=== PATIENT | male | born 1945 | race Caucasian/White ===

== ENCOUNTER → 2016-12-03 | Outpatient (CLI) | payer MEDICARE, OTHER ==
[2016-12-03 09:31] LABS: HEMATOCRIT 38.8 % (37.9-51.0); HGB HCT DIFFERENCE -2.8; MEAN CORPUSCULAR HEMOGLOBIN 25.1 pg (27.0-33.4); MEAN CORPUSCULAR HGB CONC 30.9 g/dL (32.0-36.0); MEAN CORPUSCULAR VOLUME 81 fl (80-97); RED BLOOD COUNT 4.78 10^6/uL (4.35-5.55); RED CELL DISTRIBUTION WIDTH 16.1 % (11.5-14.0); WHITE BLOOD COUNT 6.6 10^3/uL (4.0-10.5)
[2016-12-03 09:52] LABS: ANION GAP 17 (5-19); BLOOD UREA NITROGEN 28 mg/dL (7-20); CALCIUM 9.9 mg/dL (8.4-10.2); CARBON DIOXIDE 22 mmol/L (22-30); CHLORIDE 104 mmol/L (98-107); CREATININE RESULT 1.16 mg/dL (0.52-1.25); GLUCOSE 162 mg/dL (75-110); POTASSIUM 4.9 mmol/L (3.6-5.0); SODIUM 142.6 mmol/L (137-145)
[2016-12-03 09:52] LABS: APPEARANCE,URINE CLEAR; BILIRUBIN,URINE NEGATIVE (NEGATIVE); GLUCOSE, URINE NEGATIVE (NEGATIVE); KETONES,URINE NEGATIVE (NEGATIVE); LEUKOCYTE ESTERASE,URINE NEGATIVE (NEGATIVE); NITRITE,URINE NEGATIVE (NEGATIVE); PROTEIN,URINE NEGATIVE (NEGATIVE); URINE SPECIFIC GRAVITY 1.019; UROBILINOGEN,URINE NEGATIVE mg/dL (<2.0)
== END ==
LOC: LAB 09:19
PROVIDERS: ATTEND Internal Medicine Nephrology
DX: I12.9 Hypertensive chronic kidney disease with stage 1 through stage 4 chronic kidney disease, or unspecified chronic kidney disease (principal); N18.2 Chronic kidney disease, stage 2 (mild); R80.9 Proteinuria, unspecified; E11.9 Type 2 diabetes mellitus without complications
CPT/HCPCS: 36415; 80048; 81001; 85027

== ENCOUNTER → 2017-06-16 | Outpatient (CLI) | payer MEDICARE, OTHER ==
[2017-06-16 10:44] LABS: ABSOLUTE EOSINOPHILS # (AUTO) 0.2 10^3/uL (0.0-0.6); ABSOLUTE LYMPHOCYTES (AUTO) 2.1 10^3/uL (0.5-4.7); ABSOLUTE MONOCYTES (AUTO) 0.6 10^3/uL (0.1-1.4); BASOPHILS % (AUTO) 0.5 % (0-2); EOSINOPHILS % (AUTO) 2.5 % (0-6); HEMATOCRIT 39.5 % (37.9-51.0); HGB HCT DIFFERENCE -0.5; LYMPHOCYTES % (AUTO) 26.5 % (13-45); MEAN CORPUSCULAR HEMOGLOBIN 26.5 pg (27.0-33.4); MEAN CORPUSCULAR VOLUME 80 fl (80-97); RED BLOOD COUNT 4.91 10^6/uL (4.35-5.55); RED CELL DISTRIBUTION WIDTH 15.1 % (11.5-14.0); SEGMENTED NEUTROPHILS % (AUTO) 62.5 % (42-78)
[2017-06-16 11:11] LABS: ALANINE AMINOTRANSFERASE 31 U/L (21-72); ALBUMIN 4.4 g/dL (3.5-5.0); ALKALINE PHOSPHATASE 72 U/L (38-126); ANION GAP 14 (5-19); ASPARTATE AMINO TRANSFERASE 24 U/L (17-59); BILIRUBIN,DIRECT 0.4 mg/dL (0.0-0.4); BILIRUBIN,TOTAL 0.7 mg/dL (0.2-1.3); BLOOD UREA NITROGEN 21 mg/dL (7-20); CALCIUM 9.6 mg/dL (8.4-10.2); CARBON DIOXIDE 23 mmol/L (22-30); CHLORIDE 104 mmol/L (98-107); CHOLESTEROL 122.78 mg/dL (0-200); CREATININE RESULT 1.17 mg/dL (0.52-1.25); Direct HDL 29 mg/dL (>40); GLUCOSE 154 mg/dL (75-110); TOTAL PROTEIN 8.2 g/dL (6.3-8.2); TRIGLYCERIDES 332 mg/dL (<150)
[2017-06-16 11:22] LABS: DIRECT LDL 42 mg/dL (<100)
[2017-06-16 11:56] LABS: VLDL CHOLESTEROL 66.4 mg/dL (10-31)
== END ==
LOC: LAB 10:24
PROVIDERS: ATTEND Internal Medicine
DX: E11.9 Type 2 diabetes mellitus without complications (principal); I10 Essential (primary) hypertension; E78.5 Hyperlipidemia, unspecified; R35.1 Nocturia; R53.82 Chronic fatigue, unspecified
CPT/HCPCS: 36415; 80053; 80061; 83036; 84153; 84443; 85025

== ENCOUNTER → 2017-10-06 | Outpatient (CLI) | payer MEDICARE, OTHER ==
[2017-10-06 10:17] LABS: ABSOLUTE EOSINOPHILS # (AUTO) 0.1 10^3/uL (0.0-0.6); ABSOLUTE MONOCYTES (AUTO) 0.6 10^3/uL (0.1-1.4); ABSOLUTE NEUT (AUTO) 3.2 10^3/uL (1.7-8.2); BASOPHILS % (AUTO) 0.3 % (0-2); EOSINOPHILS % (AUTO) 2.3 % (0-6); HEMATOCRIT 39.9 % (37.9-51.0); HEMOGLOBIN 12.9 g/dL (13.5-17.0); HGB HCT DIFFERENCE -1.2; LYMPHOCYTES % (AUTO) 32.7 % (13-45); MEAN CORPUSCULAR HEMOGLOBIN 26.4 pg (27.0-33.4); MEAN CORPUSCULAR HGB CONC 32.4 g/dL (32.0-36.0); MEAN CORPUSCULAR VOLUME 81 fl (80-97); MONOCYTES % (AUTO) 10.5 % (3-13); RED CELL DISTRIBUTION WIDTH 16.1 % (11.5-14.0); SEGMENTED NEUTROPHILS % (AUTO) 54.2 % (42-78)
[2017-10-06 10:42] LABS: ALANINE AMINOTRANSFERASE 36 U/L (21-72); ALBUMIN 4.4 g/dL (3.5-5.0); ALKALINE PHOSPHATASE 64 U/L (38-126); ANION GAP 15 (5-19); ASPARTATE AMINO TRANSFERASE 28 U/L (17-59); BILIRUBIN,DIRECT 0.3 mg/dL (0.0-0.4); BILIRUBIN,TOTAL 0.6 mg/dL (0.2-1.3); BLOOD UREA NITROGEN 24 mg/dL (7-20); CARBON DIOXIDE 25 mmol/L (22-30); CHLORIDE 103 mmol/L (98-107); CHOLESTEROL 144.39 mg/dL (0-200); CREATININE RESULT 1.32 mg/dL (0.52-1.25); Direct HDL 34 mg/dL (>40); GLUCOSE 179 mg/dL (75-110); POTASSIUM 5.3 mmol/L (3.6-5.0); SODIUM 143.3 mmol/L (137-145); TOTAL PROTEIN 7.6 g/dL (6.3-8.2); TRIGLYCERIDES 362 mg/dL (<150)
[2017-10-06 10:54] LABS: DIRECT LDL 59 mg/dL (<100)
[2017-10-06 10:55] LABS: VLDL CHOLESTEROL 72.4 mg/dL (10-31)
== END ==
LOC: LAB 09:52
PROVIDERS: ATTEND Internal Medicine
DX: E11.9 Type 2 diabetes mellitus without complications (principal); I10 Essential (primary) hypertension; E78.5 Hyperlipidemia, unspecified
CPT/HCPCS: 36415; 80053; 80061; 83036; 85025

== ENCOUNTER → 2017-10-07 | Outpatient (CLI) | payer MEDICARE, OTHER ==
--- NOTE | 2017-10-08 09:14 | RADIOLOGY REPORT (SQ) ---
EXAM DESCRIPTION: MRI RT UPPER JOINT WITHOUT COMPLETED DATE/TIME: 10/07/2017 2:38 pm REASON FOR STUDY: M25.511 PAIN IN RIGHT SHOULDER M25.511 PAIN IN RIGHT SHOULDER COMPARISON: None. TECHNIQUE: Right shoulder images acquired and stored on PACS. Multiplanar imaging to include fat sen sitive sequences such as T1, water sensitive sequences such as FST2/STIR, cartilage sensitive sequenc es such as FSPD/gradient-echo sequences. LIMITATIONS: None. FINDINGS: BONE MARROW AND CORTEX: No worrisome bone lesions or marrow replacement. No occult fractur es. JOINT OR BURSAL EFFUSION: There is fluid in the subacromial/subdeltoid bursarelated to full-thickness supraspinatus tear GLENO-HUMERAL ARTICULATION: Normal articulation. No subluxation. No cystic change. Mild chondromalac ia at the glenohumeral joint. ACROMION AND AC JOINT: Type 2 with very bulky acromioclavicular joint bony spurring, and narrowing o f the subacromial recess ROTATOR CUFF AND INTERVAL: Full-thickness tear distal supraspinatus tendon. Bone tendinopathy infras pinatus and subscapularis tendons. LABRUM AND BICEPS LABRAL COMPLEX: Intra-articular long head biceps tendon is thin and high signal f rom tendinopathy. Superior labral tear extending throughout the posterior labrum. No paralabral cys ts. REMAINDER OF LABRUM AND IGHL : No gross tear or paralabral cyst formation. Labral evaluation is less than optimal without joint distention. No thickening of IGHL to suggest adhesive capsulitis. PERIARTICULAR AND ADJACENT SOFT TISSUES: No masses or abnormal nodes. OTHER: No other significant finding. IMPRESSION: Full-thickness supraspinatus tendon tear Superior labral tear extending throughout the posterior labrum TECHNICAL DOCUMENTATION: JOB ID: [id number] [employer]- All Rights Reserved
== END ==
LOC: RAD 13:17
PROVIDERS: ATTEND Internal Medicine
DX: M25.511 Pain in right shoulder (principal)

== ENCOUNTER → 2018-02-17 | Outpatient (CLI) | payer MEDICARE, OTHER ==
--- NOTE | 2018-02-17 11:45 | RADIOLOGY REPORT (SQ) ---
EXAM DESCRIPTION: CHEST PA/LATERAL COMPLETED DATE/TIME: 02/17/2018 11:07 am REASON FOR STUDY: ACUTE BRONCHITIS, UNSPECIFIED,WHEEZING COMPARISON: 06/18/2014, 06/14/2014 EXAM PARAMETERS: NUMBER OF VIEWS: two views TECHNIQUE: Digital Frontal and Lateral radiographic views of the chest acquired. RADIATION DOSE: NA LIMITATIONS: none FINDINGS: LUNGS AND PLEURA: No opacities, masses or pneumothorax. No pleural effusion. MEDIASTINUM AND HILAR STRUCTURES: No masses or contour abnormalities. HEART AND VASCULAR STRUCTURES: Mild cardiomegaly. BONES: No acute findings. HARDWARE: None in the chest. OTHER: No other significant finding. IMPRESSION: Mild cardiomegaly. No acute infiltrates. TECHNICAL DOCUMENTATION: JOB ID: [id number] [employer]- All Rights Reserved Reading location - IP/workstation name: [email or web address]
== END ==
LOC: OD 10:42
PROVIDERS: ATTEND Family Medicine Geriatric Medicine
DX: J20.9 Acute bronchitis, unspecified (principal); R06.2 Wheezing
CPT/HCPCS: 71046

== ENCOUNTER → 2018-02-22 | Outpatient (CLI) | payer MEDICARE, OTHER ==
--- NOTE | 2018-02-23 10:07 | XCELERA REPORT ---
[address] [address] Transthoracic Echocardiogram Report Name: ALLAN NI Age: 72 yrs Gender: Male : 1945 Patient Status: Outpatient Patient Location: Study Date: 02/22/2018 09:22 AM Height: 68 in Weight: 223 lb BSA: 2.1 m2 Procedure: A complete two-dimensional transthoracic echocardiogram was performed (2D, M-mode, spectral and color flow Doppler). The study was technically adequate with some images being suboptimal in quality. Reason For Study: CARDIOMEGALY Ordering Physician: JUAN BARAJAS Performed By: Joshua Murillo Interpretation Summary The left ventricular ejection fraction is normal. There is borderline concentric left ventricular hypertrophy. The left ventricle is grossly normal size. Doppler measurements suggest pseudonormalized left ventricular relaxation, which is associated with grade II/IV or mild to moderate diastolic dysfunction Wall motion cannot be accurately commented on, but no definite regional wall motion abnormalities noted. The right ventricular systolic function is normal. The left atrial size is normal. The right atrium is normal in size There is a mild amount of mitral regurgitation There is no mitral valve stenosis. There is no aortic valve stenosis No aortic regurgitation is present. There is a trace or physiologic amount of tricuspid regurgitation Tricuspid regurgitation jet envelope not well defined to measure RV systolic pressure accurately. The aortic root is not well visualized but is probably normal size. The inferior vena cava was not well visualized There is no pericardial effusion. MMode/2D Measurements & Calculations RVDd: 2.7 cm LVIDd: 6.0 cm FS: 33.1 % Ao root diam: 2.9 cm IVSd: 0.77 cm LVIDs: 4.0 cm EDV(Teich): 181.4 ml LVPWd: 0.83 cm ESV(Teich): 71.2 ml Ao root area: 6.7 cm2 EF(Teich): 60.8 % LA dimension: 3.4 cm Doppler Measurements & Calculations MV E max yin: MV P1/2t max yin: Ao V2 max: LV V1 max P.3 cm/sec 93.3 cm/sec 141.6 cm/sec 4.7 mmHg MV A max yin: MV P1/2t: 62.9 msec Ao max PG: LV V1 max: 83.4 cm/sec 8.0 mmHg 108.6 cm/sec MV E/A: 1.1 MVA(P1/2t): 3.5 cm2 LV dP/dt: MV dec slope: 1023 mmHg/s 434.6 cm/sec2 PA V2 max: TR max yin: 115.5 cm/sec 217.2 cm/sec PA max PG: TR max P.9 mmHg 5.3 mmHg Left Ventricle The left ventricle is grossly normal size. There is borderline concentric left ventricular hypertrophy. The left ventricular ejection fraction is normal. Doppler measurements suggest pseudonormalized left ventricular relaxation, which is associated with grade II/IV or mild to moderate diastolic dysfunction. Wall motion cannot be accurately commented on, but no definite regional wall motion abnormalities noted. Right Ventricle The right ventricle is grossly normal size. There is normal right ventricular wall thickness. The right ventricular systolic function is normal. Atria The right atrium is normal in size. The left atrial size is normal. Interarterial septum not well visualized and not well dopplered. Cannot comment on ASD/PFO presence. Mitral Valve The mitral valve is grossly normal. There is no mitral valve stenosis. There is a mild amount of mitral regurgitation. Aortic Valve The aortic valve is not well visualized secondary to technical limitations. There is no aortic valve stenosis. No aortic regurgitation is present. Tricuspid Valve The tricuspid valve is not well visualized secondary to technical limitations. There is no tricuspid stenosis. There is a trace or physiologic amount of tricuspid regurgitation. Tricuspid regurgitation jet envelope not well defined to measure RV systolic pressure accurately. Pulmonic Valve The pulmonic valve is not well visualized. Great Vessels The aortic root is not well visualized but is probably normal size. The inferior vena cava was not well visualized. Effusions There is no pericardial effusion. : JUAN BARAJAS > Raman Sneed
== END ==
LOC: SP 09:04
PROVIDERS: ATTEND Family Medicine Geriatric Medicine
DX: I51.7 Cardiomegaly (principal)
CPT/HCPCS: 93306

== ENCOUNTER 2018-05-24 15:07 | Emergency (ER) | payer MEDICARE, OTHER ==
[2018-05-24] MEDS ORDERED: NAPROXEN 250 MG TABLET PO ONE (15:44)
[2018-05-24] MEDS ORDERED: DIAZEPAM 5 MG TABLET PO ONE (15:44)
--- NOTE | 2018-05-24 15:47 | ER Document Report ---
ED Medical Screen (RME) - General Chief Complaint: Headache Stated Complaint: HEADACHE Time Seen by Provider: 05/24/18 15:35 Notes: RAPID MEDICAL EVALUATION DISCLOSURE I have seen this patient as part of a Rapid Medical Evaluation and, if applicable, placed any initially appropriate orders. The patient will be seen and fully evaluated, including a full history and physical exam, by a provider ( in Main ED or Fast Track) when a room becomes available. 72M here w c/o neck pain past few days but worse today and much more severe. He has also had a POON in the back of the head but does not have one at this time. he has tried motrin for the sx without much relief. He initially told the [facility] RN that it felt like his meningitis previously but denies this to me. He has also been having whole body cramps "every single night". He was recently tx for bronchitis and was doing a lot of coughing and wonders if this may have caused him to have the neck pain/POON. EXAM exquisite bilateral cervical paraspinal mm TTP strength 5/5 w intact sensation all extremities TRAVEL OUTSIDE OF THE [place] IN LAST 30 DAYS: No - Related Data Allergies/Adverse Reactions: No Known Allergies Allergy (Verified 06/14/14 18:26) Physical Exam - Vital signs Vitals: Temp Pulse Resp BP Pulse Ox 97.7 F 94 18 149/81 H 95 05/24/18 15:15 05/24/18 15:15 05/24/18 15:15 05/24/18 15:15 05/24/18 15:15 Course - Vital Signs Vital signs: Temp Pulse Resp BP Pulse Ox 97.7 F 94 18 149/81 H 95 05/24/18 15:15 05/24/18 15:15 05/24/18 15:15 05/24/18 15:15 05/24/18 15:15 Doctor's Discharge - Discharge Referrals: JUAN BARAJAS MD [Primary Care Provider] - Follow up as needed
[2018-05-24 16:41] LABS: ABSOLUTE LYMPHOCYTES (AUTO) 1.6 10^3/uL (0.5-4.7); BASOPHILS % (AUTO) 0.4 % (0-2); EOSINOPHILS % (AUTO) 0.4 % (0-6); HEMATOCRIT 37.1 % (37.9-51.0); HEMOGLOBIN 12.1 g/dL (13.5-17.0); LYMPHOCYTES % (AUTO) 14.8 % (13-45); MEAN CORPUSCULAR HEMOGLOBIN 26.5 pg (27.0-33.4); MEAN CORPUSCULAR HGB CONC 32.6 g/dL (32.0-36.0); MEAN CORPUSCULAR VOLUME 81 fl (80-97); PLATELET COUNT 296 10^3/uL (150-450); RED BLOOD COUNT 4.56 10^6/uL (4.35-5.55); RED CELL DISTRIBUTION WIDTH 15.9 % (11.5-14.0); SEGMENTED NEUTROPHILS % (AUTO) 75.4 % (42-78); TOTAL CELLS COUNTED % (AUTO) 100 %; WHITE BLOOD COUNT 10.6 10^3/uL (4.0-10.5)
[2018-05-24 16:55] LABS: ANION GAP 16 (5-19); BLOOD UREA NITROGEN 25 mg/dL (7-20); CALCIUM 9.5 mg/dL (8.4-10.2); CARBON DIOXIDE 27 mmol/L (22-30); CHLORIDE 102 mmol/L (98-107); GLUCOSE 186 mg/dL (75-110); POTASSIUM 5.3 mmol/L (3.6-5.0); SODIUM 144.7 mmol/L (137-145)
[2018-05-24] MEDS ORDERED: OXYCODONE HCL IR 5 MG TABLET PO ONE (17:19)
[2018-05-24] MEDS ORDERED: DIPHENHYDRAMINE HCL 25 MG CAPSULE PO ONE (18:00)
[2018-05-24] MEDS ORDERED: METOCLOPRAMIDE HCL ORAL SOLN 10 MG/10 ML UDCUP PO ONE (18:00)
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
[2018-05-24 19:59] VITALS: BP 139/76
== END 2018-05-24 19:35 | disposition home or self-care (01) ==
LOC: ER 15:07
DX: S16.1XXA Strain of muscle, fascia and tendon at neck level, initial encounter (principal); X58.XXXA Exposure to other specified factors, initial encounter; R51 Headache; M54.2 Cervicalgia; E11.9 Type 2 diabetes mellitus without complications; Z86.61 Personal history of infections of the central nervous system
CPT/HCPCS: 99284; 36415; 85025; 80048; A9270 ×5

== ENCOUNTER → 2018-05-31 | Outpatient (CLI) | payer MEDICARE, OTHER ==
[2018-05-31 16:21] LABS: ABSOLUTE EOSINOPHILS # (AUTO) 0.1 10^3/uL (0.0-0.6); ABSOLUTE LYMPHOCYTES (AUTO) 1.8 10^3/uL (0.5-4.7); ABSOLUTE MONOCYTES (AUTO) 0.6 10^3/uL (0.1-1.4); ABSOLUTE NEUT (AUTO) 4.7 10^3/uL (1.7-8.2); BASOPHILS % (AUTO) 0.4 % (0-2); EOSINOPHILS % (AUTO) 1.9 % (0-6); HEMATOCRIT 38.6 % (37.9-51.0); HEMOGLOBIN 12.6 g/dL (13.5-17.0); LYMPHOCYTES % (AUTO) 25.1 % (13-45); MEAN CORPUSCULAR HEMOGLOBIN 25.8 pg (27.0-33.4); MEAN CORPUSCULAR HGB CONC 32.6 g/dL (32.0-36.0); MEAN CORPUSCULAR VOLUME 79 fl (80-97); MONOCYTES % (AUTO) 7.9 % (3-13); PLATELET COUNT 315 10^3/uL (150-450); RED BLOOD COUNT 4.87 10^6/uL (4.35-5.55); SEGMENTED NEUTROPHILS % (AUTO) 64.7 % (42-78); TOTAL CELLS COUNTED % (AUTO) 100 %; WHITE BLOOD COUNT 7.3 10^3/uL (4.0-10.5)
[2018-05-31 17:08] LABS: ALANINE AMINOTRANSFERASE 29 U/L (21-72); ALBUMIN 4.1 g/dL (3.5-5.0); ALKALINE PHOSPHATASE 66 U/L (38-126); ANION GAP 14 (5-19); ASPARTATE AMINO TRANSFERASE 40 U/L (17-59); BILIRUBIN,DIRECT 0.3 mg/dL (0.0-0.4); BILIRUBIN,TOTAL 0.6 mg/dL (0.2-1.3); BLOOD UREA NITROGEN 29 mg/dL (7-20); CALCIUM 9.5 mg/dL (8.4-10.2); CARBON DIOXIDE 27 mmol/L (22-30); CHLORIDE 103 mmol/L (98-107); CHOLESTEROL 102.77 mg/dL (0-200); GLUCOSE 157 mg/dL (75-110); POTASSIUM 5.3 mmol/L (3.6-5.0); TOTAL PROTEIN 7.7 g/dL (6.3-8.2); TRIGLYCERIDES 278 mg/dL (<150)
[2018-05-31 17:19] LABS: DIRECT LDL 35 mg/dL (<100)
[2018-05-31 17:38] LABS: VLDL CHOLESTEROL 55.6 mg/dL (10-31)
== END ==
LOC: LAB 16:04
PROVIDERS: ATTEND Internal Medicine
DX: E11.9 Type 2 diabetes mellitus without complications (principal); I10 Essential (primary) hypertension; R35.1 Nocturia; R53.83 Other fatigue; E78.4 Other hyperlipidemia; Z12.5 Encounter for screening for malignant neoplasm of prostate
CPT/HCPCS: 36415; 84443; 85025; 80053; 83036; 80061; G0103

== ENCOUNTER 2018-08-25 18:47 | Observation (INO) | payer MEDICARE, OTHER ==
[2018-08-25] MEDS ORDERED: METOCLOPRAMIDE HCL INJ/PF 10 MG/2 ML SDV IV ONE (19:13)
[2018-08-25] MEDS ORDERED: DIPHENHYDRAMINE HCL 50 MG/ML VIAL IV ONE (19:13)
[2018-08-25] MEDS ORDERED: DIAZEPAM 5 MG TABLET PO ONE (19:14)
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
[2018-08-25 19:44] LABS: INTERNATIONAL RATION (INR) 0.98; PROTHROMBIN TIME 13.5 SEC (11.4-15.4)
--- NOTE | 2018-08-25 20:30 | RADIOLOGY REPORT (SQ) ---
EXAM DESCRIPTION: CT CERVICAL SPINE WITHOUT COMPLETED DATE/TIME: 08/25/2018 8:04 pm REASON FOR STUDY: Headache, neck pain COMPARISON: None. TECHNIQUE: Axial images acquired through the cervical spine without intravenous contrast. Images re viewed with lung, soft tissue and bone windows. Reconstructed coronal and sagittal MPR images review ed. Images stored on PACS. All CT scanners at this facility use dose modulation, iterative reconstruction, and/or weight based d osing when appropriate to reduce radiation dose to as low as reasonably achievable (ALARA). [facility]: Dose Right [facility]: CareDose [facility]: Dose Right [facility]: Teradose 4D [facility]: [employer] RADIATION DOSE: CT Rad equipment meets quality standard of care and radiation dose reduction techniq ues were employed. CTDIvol: 24.2 mGy. DLP: 487 mGy-cm. mGy. LIMITATIONS: None. FINDINGS: ALIGNMENT: Anatomic. MINERALIZATION: Normal. VERTEBRAL BODIES: No fractures or dislocation. DISCS: Disc spaces are narrowed from C3-C7 with small marginal osteophytes. FACETS, LATERAL MASSES, POSTERIOR ELEMENTS: Multilevel facet hypertrophy, right more than left. HARDWARE: None in the spine. VISUALIZED RIBS: No fractures. LUNG APICES AND SOFT TISSUES: No significant or acute findings. OTHER: No other significant finding. IMPRESSION: Degenerative disc disease, facet arthropathy. Mild spondylosis. No acute findings. TECHNICAL DOCUMENTATION: JOB ID: [id number] Quality ID # [id number]: Final reports with documentation of one or more dose reduction techniques (e.g., Au tomated exposure control, adjustment of the mA and/or kV according to patient size, use of iterative reconstruction technique) 2010 [employer]- All Rights Reserved Reading location - IP/workstation name: [email or web address]
--- NOTE | 2018-08-25 20:31 | RADIOLOGY REPORT (SQ) ---
EXAM DESCRIPTION: CT HEAD WITHOUT COMPLETED DATE/TIME: 08/25/2018 8:04 pm REASON FOR STUDY: Headache, neck pain COMPARISON: 06/14/2014 TECHNIQUE: Axial images acquired through the brain without intravenous contrast. Images reviewed wi th bone, brain and subdural windows. Additional sagittal and coronal reconstructions were generated. Images stored on PACS. All CT scanners at this facility use dose modulation, iterative reconstruction, and/or weight based d osing when appropriate to reduce radiation dose to as low as reasonably achievable (ALARA). [facility]: Dose Right [facility]: CareDose [facility]: Dose Right [facility]: Teradose 4D [facility]: Smart [employer] RADIATION DOSE: CT Rad equipment meets quality standard of care and radiation dose reduction techniq ues were employed. CTDIvol: 53.2 mGy. DLP: 964 mGy-cm. mGy. LIMITATIONS: None. FINDINGS: VENTRICLES: Normal size and contour. CEREBRUM: No masses. No hemorrhage. No midline shift. No evidence for acute infarction. Few scatte red areas of low density in the white matter most likely chronic small vessel ischemic changes. CEREBELLUM: No masses. No hemorrhage. No alteration of density. No evidence for acute infarction. EXTRAAXIAL SPACES: No fluid collections. No masses. ORBITS AND GLOBE: No intra- or extraconal masses. Normal contour of globe without masses. CALVARIUM: No fracture. PARANASAL SINUSES: No fluid or mucosal thickening. SOFT TISSUES: No mass or hematoma. OTHER: No other significant finding. IMPRESSION: MILD CHRONIC MICROVASCULAR ISCHEMIA. NO ACUTE IMAGING FINDINGS IN THE BRAIN. EVIDENCE OF ACUTE STROKE: NO. COMMENT: Quality ID # [id number]: Final reports with documentation of one or more dose reduction techniques (e.g., Automated exposure control, adjustment of the mA and/or kV according to patient size, use of iterative reconstruction technique) TECHNICAL DOCUMENTATION: JOB ID: [id number] [employer]- All Rights Reserved Reading location - IP/workstation name: [email or web address]
--- NOTE | 2018-08-25 20:32 | RADIOLOGY REPORT (SQ) ---
EXAM DESCRIPTION: CHEST 2 VIEWS COMPLETED DATE/TIME: 08/25/2018 8:06 pm REASON FOR STUDY: cough COMPARISON: 06/18/2014 EXAM PARAMETERS: NUMBER OF VIEWS: two views TECHNIQUE: Digital Frontal and Lateral radiographic views of the chest acquired. RADIATION DOSE: NA LIMITATIONS: none FINDINGS: LUNGS AND PLEURA: No opacities, masses or pneumothorax. No pleural effusion. MEDIASTINUM AND HILAR STRUCTURES: No masses or contour abnormalities. HEART AND VASCULAR STRUCTURES: Heart normal size. No evidence for failure. BONES: No acute findings. HARDWARE: None in the chest. OTHER: No other significant finding. IMPRESSION: NO ACUTE RADIOGRAPHIC FINDING IN THE CHEST. TECHNICAL DOCUMENTATION: JOB ID: [id number] [employer]- All Rights Reserved Reading location - IP/workstation name: [email or web address]
[2018-08-25 21:05] LABS: ABSOLUTE EOSINOPHILS # (AUTO) 0.1 10^3/uL (0.0-0.6); ABSOLUTE LYMPHOCYTES (AUTO) 1.9 10^3/uL (0.5-4.7); ABSOLUTE MONOCYTES (AUTO) 0.7 10^3/uL (0.1-1.4); ABSOLUTE NEUT (AUTO) 6.5 10^3/uL (1.7-8.2); BASOPHILS % (AUTO) 0.2 % (0-2); EOSINOPHILS % (AUTO) 1.4 % (0-6); HEMATOCRIT 38.6 % (37.9-51.0); HEMOGLOBIN 12.6 g/dL (13.5-17.0); LYMPHOCYTES % (AUTO) 20.1 % (13-45); MEAN CORPUSCULAR HEMOGLOBIN 26.4 pg (27.0-33.4); MEAN CORPUSCULAR HGB CONC 32.6 g/dL (32.0-36.0); MEAN CORPUSCULAR VOLUME 81 fl (80-97); PLATELET COUNT 229 10^3/uL (150-450); RED BLOOD COUNT 4.77 10^6/uL (4.35-5.55); RED CELL DISTRIBUTION WIDTH 16.3 % (11.5-14.0); SEGMENTED NEUTROPHILS % (AUTO) 70.3 % (42-78); TOTAL CELLS COUNTED % (AUTO) 100 %; WHITE BLOOD COUNT 9.2 10^3/uL (4.0-10.5)
[2018-08-25 21:29] LABS: ALANINE AMINOTRANSFERASE 23 U/L (21-72); ALBUMIN 4.1 g/dL (3.5-5.0); ALKALINE PHOSPHATASE 66 U/L (38-126); ANION GAP 10 (5-19); ASPARTATE AMINO TRANSFERASE 26 U/L (17-59); BILIRUBIN,DIRECT 0.3 mg/dL (0.0-0.4); BILIRUBIN,TOTAL 0.8 mg/dL (0.2-1.3); BLOOD UREA NITROGEN 19 mg/dL (7-20); CALCIUM 9.5 mg/dL (8.4-10.2); CARBON DIOXIDE 24 mmol/L (22-30); CHLORIDE 104 mmol/L (98-107); GLUCOSE 167 mg/dL (75-110); SODIUM 137.7 mmol/L (137-145); TOTAL PROTEIN 7.6 g/dL (6.3-8.2)
[2018-08-25 21:31] LABS: POTASSIUM 6.5 mmol/L (3.6-5.0)
[2018-08-25] MEDS ORDERED: INSULIN REG, HUMAN 100 UNIT/ML 3 ML VIAL (PYX) IV ONE (21:43)
[2018-08-25] MEDS ORDERED: CALCIUM GLUCONATE 1000 MG/10 ML INJ IV ONE (21:43)
[2018-08-25] MEDS ORDERED: DEXTROSE 50%-WATER 25 GM/50 ML DISP.SYRIN IV ONE (21:44)
[2018-08-25] MEDS ORDERED: ALBUTEROL SULFATE 0.083% NEB 2.5 MG/3 ML AMPUL NEB ONE (21:44)
[2018-08-25] MEDS ORDERED: FUROSEMIDE INJ/PF 20 MG/2 ML SDV IV ONE (21:44)
[2018-08-25] MEDS ORDERED: HYDROMORPHONE HCL INJ/PF 2 MG/ML AMPULE IV ONE (21:50)
[2018-08-25] MEDS ORDERED: PROMETHAZINE HCL INJ 25 MG/1 ML VIAL IV PRN (23:08)
[2018-08-25] MEDS ORDERED: MAG HYDROX/AL HYDROX/SIMETH SUSP 30 ML UDCUP PO PRN (23:08)
[2018-08-25] MEDS ORDERED: PROMETHAZINE HCL 25 MG TABLET PO PRN (23:08)
[2018-08-25] MEDS ORDERED: DEXTROSE 40% GEL 15 GM TUBE PO PRN ×2 (23:14)
[2018-08-25] MEDS ORDERED: GLUCAGON,HUMAN RECOMB 1 MG INJ IM PRN (23:14)
[2018-08-25] MEDS ORDERED: DEXTROSE 50%-WATER 25 GM/50 ML DISP.SYRIN IV PRN ×2 (23:14)
--- NOTE | 2018-08-26 00:16 | PDOC H&P ---
History of Present Illness Admission Date/PCP: 08/25/18 22:10 DOROTHY TELLEZ MD Patient complains of: Neck pain History of Present Illness: ALLAN NI is a 72 year old male with history of hypertension, hyperlipidemia and viral meningitis in 2013 comes to the emergency department complaining of neck pain and headaches. Patient has been in our emergency department before with similar symptomatology and sent home with pain medications. In the emergency department laboratory was sent and potassium came back up to 6.5. Patient is at home on lisinopril which is not a new medication for him, denies taking any potassium supplements or any over-the- counter vitamins. Patient has very mild CKD stage III. His main complaint and concern is his neck pain and he is unable to move his neck, CT of the neck was done on prior visit to the emergency department and shows chronic changes. Denies fever, chills, nausea, vomiting, chest pain, shortness of breath, cough, abdominal pain, changes in his urine or bowel movements. In the ED was given hyperkalemia cocktail with D50 with 10 units of insulin regular IV, 1 g of IV calcium gluconate, nebulizer treatments with albuterol. EKG with no peak T waves. Past Medical History Cardiac Medical History: Reports: Hyperlipidema, Hypertension Pulmonary Medical History: Reports: Bronchitis Endocrine Medical History: Reports: Diabetes Mellitus Type 2 Renal/ Medical History: Reports: Nephrolithiasis Skin History Note: Agent orange exposure Psychiatric Medical History: Reports: Post Traumatic Stress Disorder Past Surgical History Past Surgical History: Reports: Orthopedic Surgery - Left hand surgery Social History Lives with: Alone Smoking Status: Former Smoker Frequency of Alcohol Use: Occasional Hx Recreational Drug Use: No Hx Prescription Drug Abuse: No Past Social History Note: Patient is independent with his ADLs, 2 daughters at the bedside. Family History Family History: Reviewed & Not Pertinent Parental Family History Reviewed: Yes - Father with history of diabetes mellitus Children Family History Reviewed: NA Sibling(s) Family History Reviewed.: NA Medication/Allergy Home Medications: Amoxicillin Trihydrate [Amoxil 875 mg Tablet] 1 tab PO Q12 06/14/14 Fluticasone Propionate [Flovent Diskus 50 mcg] 2 puff IH DAILY 06/14/14 Glyburide [Diabeta 5 mg Tablet] 5 mg PO QAM 06/14/14 Lisinopril/Hydrochlorothiazide [Lisinopril-Hctz 20-12.5 mg Tab] 1.5 each PO DAILY 06/14/14 Simvastatin 40 mg PO DAILY 06/14/14 Sitagliptin Phos/Metformin HCl [Janumet 50-1,000 Mg Tablet] 1 each PO BID Hydrocodone/Acetaminophen [Halifax 5-325 mg Tablet] 1 tab PO Q6H #12 tablet Allergies/Adverse Reactions: No Known Allergies Allergy (Verified 08/25/18 18:48) Review of Systems Review of Systems: As outlined in the HPI, all others negative Physical Exam Vital Signs: Temp Pulse Resp BP Pulse Ox 97.9 F 79 20 147/79 H 93 08/25/18 18:49 08/25/18 18:49 08/25/18 23:01 08/25/18 23:01 08/25/18 23:01 Additional comments: General appearance: Well-developed, obese, alert and cooperative, and appears to be in no acute distress Head: Normocephalic Eyes: PEERL, EOMI, vision is grossly intact. Ears: External auditory canal and tympanic membranes clear, hearing grossly intact. Nose: No nasal discharge. Throat: Oral cavity and pharynx normal. No inflammation, swelling, exudate or lesions. Neck: Neck stiff, with limited range of motion to right, left side, up or down. Tenderness to palpation in the para spinal cervical area. No lymphadenopathy , erythema or swelling. Cardiac: Normal S1 and S2. No S3, S4 or murmurs. Rhythm is regular. There is no peripheral edema, cyanosis or pallor. Extremities are warm and well perfused. Capillary refill is less than 2 seconds. No carotid bruits. Lungs: Clear to auscultation and percussion without rales, rhonchi, wheezing or diminished breath sounds. Not using accessory muscles. Abdomen: Positive bowel sounds. Soft. Nondistended, nontender. No guarding or rebound. No masses. No hepatosplenomegaly Extremities: No significant deformity or joint abnormality. No edema. Peripheral pulses intact. No varicosities. Neurological: Cranial nerves II through XII grossly intact. Strength and sensation symmetric and intact throughout. Reflexes 2+ throughout. Skin: Skin normal color, texture and turgor with no lesions or eruptions, warm and dry. Psychiatric: The mental examination revealed the patient was oriented to person , place, and time. The patient was able to demonstrate good judgment on recent , without hallucinations, abnormal affect or abnormal behaviors. Results Laboratory Results: 08/25/18 08/25/18 08/25/18 19:24 19:24 20:50 WBC 9.2 RBC 4.77 Hgb 12.6 L Hct 38.6 MCV 81 MCH 26.4 L MCHC 32.6 RDW 16.3 H Plt Count 229 Seg Neutrophils % 70.3 Lymphocytes % 20.1 Monocytes % 8.0 Eosinophils % 1.4 Basophils % 0.2 Absolute Neutrophils 6.5 Absolute Lymphocytes 1.9 Absolute Monocytes 0.7 Absolute Eosinophils 0.1 Absolute Basophils 0.0 PT 13.5 INR 0.98 Sodium Potassium Chloride Carbon Dioxide Anion Gap BUN Creatinine Est GFR ( Amer) Est GFR (Non-Af Amer) Glucose Lactic Acid 1.9 Calcium Total Bilirubin Direct Bilirubin AST ALT Alkaline Phosphatase Total Protein Albumin 08/25/18 20:50 WBC RBC Hgb Hct MCV MCH MCHC RDW Plt Count Seg Neutrophils % Lymphocytes % Monocytes % Eosinophils % Basophils % Absolute Neutrophils Absolute Lymphocytes Absolute Monocytes Absolute Eosinophils Absolute Basophils PT INR Sodium 137.7 Potassium 6.5 H* Chloride 104 Carbon Dioxide 24 Anion Gap 10 BUN 19 Creatinine 1.29 H Est GFR ( Amer) > 60 Est GFR (Non-Af Amer) 54 L Glucose 167 H Lactic Acid Calcium 9.5 Total Bilirubin 0.8 Direct Bilirubin 0.3 AST 26 ALT 23 Alkaline Phosphatase 66 Total Protein 7.6 Albumin 4.1 Impressions: Cervical Spine CT 08/25/18 19:12 IMPRESSION: Degenerative disc disease, facet arthropathy. Mild spondylosis. No acute findings. Head CT 08/25/18 19:12 IMPRESSION: MILD CHRONIC MICROVASCULAR ISCHEMIA. NO ACUTE IMAGING FINDINGS IN THE BRAIN. EVIDENCE OF ACUTE STROKE: NO. Chest X-Ray 08/25/18 19:15 IMPRESSION: NO ACUTE RADIOGRAPHIC FINDING IN THE CHEST. Assessment & Plan - Diagnosis (1) Hyperkalemia Is this a current diagnosis for this admission?: Yes Plan: Laboratory sent in the emergency department shows serum potassium at 6.5, in the ED given 1 g of calcium gluconate, D50 with 10 units of IV insulin regular, IV Lasix and albuterol nebulizer treatments. We will reassess potassium at 1 in the morning and treat accordingly. EKG does not show any peaked T waves. Will place lisinopril on hold. Renal function is at his baseline. Denies taking any potassium supplements at home or [id number] vitamins. (2) HTN (hypertension) Qualifiers: Hypertension type: unspecified Qualified Code(s): I10 - Essential (primary ) hypertension Is this a current diagnosis for this admission?: Yes Plan: Continue with home antihypertensive medications. (3) Neck pain Is this a current diagnosis for this admission?: Yes Plan: This is a chronic problem that apparently is triggered by stress and anxiety, has a CT of the neck done this year which shows chronic changes, in the past this has improved progressively with pain medications and muscle relaxant. Will resume his home cyclobenzaprine, I will place him on Halifax as needed as during his last visit to the ED improve his symptoms and Tylenol as needed. Patient might benefit of neurosurgery evaluation as outpatient. CT of the head done as the patient was complaining of headaches and came back negative for acute, shows mild chronic microvascular ischemia. (4) Diabetes mellitus type 2 in obese Is this a current diagnosis for this admission?: Yes Plan: For now we are going to place hold his metformin. Accu-Cheks q. before meals and at bedtime, insulin lispro sliding scale and hypoglycemia protocol. - Time Time Spent: 30 to 50 Minutes
[2018-08-26 00:42] LABS: APPEARANCE,URINE CLEAR; BILIRUBIN,URINE NEGATIVE (NEGATIVE); COLOR,URINE YELLOW; GLUCOSE, URINE 50 mg/dL (NEGATIVE); KETONES,URINE NEGATIVE (NEGATIVE); LEUKOCYTE ESTERASE,URINE NEGATIVE (NEGATIVE); NITRITE,URINE NEGATIVE (NEGATIVE); PROTEIN,URINE NEGATIVE (NEGATIVE); URINE SPECIFIC GRAVITY 1.012; UROBILINOGEN,URINE NEGATIVE mg/dL (<2.0)
[2018-08-26] MEDS: OXYCODONE-ACETAMINOPHEN 5-325 MG TABLET PO PRN ×4 (00:58→17:20)
[2018-08-26] MEDS ORDERED: SODIUM POLYSTYRENE SULFONATE 15 GM/60 ML PO ONE (02:15)
[2018-08-26] MEDS: ACETAMINOPHEN 325 MG TABLET PO PRN (02:27)
[2018-08-26] MEDS: NORMAL SALINE 1000 ML 1,000 ML IV PRN ×2 (02:27→13:30)
[2018-08-26 05:09] LABS: ANION GAP 16 (5-19); BLOOD UREA NITROGEN 19 mg/dL (7-20); CALCIUM 9.9 mg/dL (8.4-10.2); CARBON DIOXIDE 22 mmol/L (22-30); CHLORIDE 102 mmol/L (98-107); GLUCOSE 196 mg/dL (75-110); POTASSIUM 5.3 mmol/L (3.6-5.0); SODIUM 139.5 mmol/L (137-145)
[2018-08-26] MEDS: MAGNESIUM SULFATE/D5W 1 GM/100 ML RTUPB IV SCH ×4 (06:41→19:14)
--- NOTE | 2018-08-26 07:28 | EKG REPORT ---
SEVERITY:- BORDERLINE ECG - SINUS RHYTHM LEFT AXIS DEVIATION BORDERLINE R WAVE PROGRESSION, ANTERIOR LEADS NONSPECIFIC ST-T CHANGE LATERAL LEADS : Confirmed by: Nima Garcia MD 26-Aug-2018 07:27:31
[2018-08-26] MEDS: INSULIN LISPRO 100 UNIT/ML 3 ML VIAL SUBCUT PRN ×3 (09:08→21:55)
[2018-08-26] MEDS: LIDOCAINE 5% (700 MG) TRANSDERMAL ADH..PATCH TP SCH (09:09)
[2018-08-26] MEDS: ENOXAPARIN SODIUM INJ 40 MG/0.4 ML DISP.SYRIN SUBCUT SCH (09:09)
--- NOTE | 2018-08-26 09:10 | Progress Note ---
Provider Note Provider Note: The patient seen this morning on rounds. He is sitting comfortably in the recliner stating that his pain in the neck is 1 out of 10. 2 daughters present at the bedside. 1 of the daughters before the conversation even started is demanding an MRI of his neck. Explained to the patient and his daughter that his symptoms do not require an emergency MRI. Advised the patient and the daughter that the patient is claustrophobic and will have difficulty completing the MRI and would probably be served better with an open MRI as an outpatient. Discussed the use of medications, physical therapy and a spine surgeon as an outpatient. The daughter disagrees with my recommendations. She is being very rude. I have discussed the case with the hospitalist group who has admitted the patient during the night and explained to them about the disagreement of the family with my recommendations. They have agreed to accept patient to their service. I have returned back to the room and explained to the patient and his daughter that I will no longer be willing to take care of him as a patient and I am discharging him from my services. Just as I am leaving the room the daughter again makes a smart comment that it is for the best. The patient will be discharged from my service and my office and I will no longer provide any kind of treatment to this patient. I have severed my relationship with the patient.
[2018-08-26] MEDS ORDERED: PROMETHAZINE HCL INJ 25 MG/1 ML VIAL IV PRN (12:00)
--- NOTE | 2018-08-26 17:13 | PDOC PROGRESS REPORT ---
Subjective Progress Note for:: 08/26/18 Subjective:: No adverse events overnight. No new complaints. His main concern is his neck pain. He and his daughter asked about an MRI of his neck. I reviewed the CT scan findings with him, and explained that the findings on CT adequately explain his neck discomfort. Also, I explained he was admitted for electrolyte disturbances, and that with those findings and inpatient MRI may not be deemed medically necessary. They both seem to be okay with that explanation. Reason For Visit: HYPERKALEMIA Physical Exam Vital Signs: Temp Pulse Resp BP Pulse Ox 98.2 F 79 18 141/79 H 95 08/26/18 15:39 08/26/18 15:39 08/26/18 15:39 08/26/18 15:39 08/26/18 15:39 Intake & Output 08/25/18 08/26/18 08/27/18 06:59 06:59 06:59 Intake Total 1029 Output Total 300 Balance -300 1029 General appearance: PRESENT: no acute distress, cooperative, disheveled, morbidly obese Neck exam: PRESENT: tenderness - Mild point tenderness with palpation. ABSENT: full ROM Respiratory exam: PRESENT: clear to auscultation gerhard, unlabored. ABSENT: chest wall tenderness, rales, rhonchi, tachypnea, wheezes Cardiovascular exam: PRESENT: RRR, +S1, +S2. ABSENT: diastolic murmur, systolic murmur GI/Abdominal exam: PRESENT: normal bowel sounds, soft. ABSENT: guarding, rebound, tenderness Extremities exam: ABSENT: clubbing, pedal edema Musculoskeletal exam: PRESENT: ambulatory, normal inspection. ABSENT: deformity Neurological exam: PRESENT: alert, awake, oriented to person, oriented to place , oriented to time Psychiatric exam: PRESENT: appropriate affect, normal mood Results Laboratory Results: 08/26/18 04:14 08/26/18 08/26/18 08/26/18 00:20 01:23 04:14 Sodium 139.5 Potassium 6.1 H* 5.3 H Chloride 102 Carbon Dioxide 22 Anion Gap 16 BUN 19 Creatinine 1.38 H Est GFR ( Amer) > 60 Est GFR (Non-Af Amer) 50 L Glucose 196 H Calcium 9.9 Magnesium Urine Color YELLOW Urine Appearance CLEAR Urine pH 5.0 Ur Specific Rose 1.012 Urine Protein NEGATIVE Urine Glucose (UA) 50 H Urine Ketones NEGATIVE Urine Blood NEGATIVE Urine Nitrite NEGATIVE Ur Leukocyte Esterase NEGATIVE Urine WBC (Auto) 0 Urine RBC (Auto) 0 08/26/18 04:14 Sodium Potassium Chloride Carbon Dioxide Anion Gap BUN Creatinine Est GFR ( Amer) Est GFR (Non-Af Amer) Glucose Calcium Magnesium 1.3 L Urine Color Urine Appearance Urine pH Ur Specific Rose Urine Protein Urine Glucose (UA) Urine Ketones Urine Blood Urine Nitrite Ur Leukocyte Esterase Urine WBC (Auto) Urine RBC (Auto) Impressions: Cervical Spine CT 08/25/18 19:12 IMPRESSION: Degenerative disc disease, facet arthropathy. Mild spondylosis. No acute findings. Head CT 08/25/18 19:12 IMPRESSION: MILD CHRONIC MICROVASCULAR ISCHEMIA. NO ACUTE IMAGING FINDINGS IN THE BRAIN. EVIDENCE OF ACUTE STROKE: NO. Chest X-Ray 08/25/18 19:15 IMPRESSION: NO ACUTE RADIOGRAPHIC FINDING IN THE CHEST. Assessment & Plan - Diagnosis (1) Hyperkalemia Is this a current diagnosis for this admission?: Yes Plan: Resolved. Will probably try to find alternative blood pressure medications for him. Interesting that he is hyperkalemic even though he is hypomagnesemic and on HCTZ, which should have offset any potassium gain from the lisinopril. Denies any exogenous sources of potassium such as a salt substitute. (2) Hypomagnesemia Is this a current diagnosis for this admission?: Yes Plan: Pacing this with IV magnesium. He apparently is on a magnesium supplement at home so this is a chronic issue. When he goes home will probably have him take his supplement twice a day instead of once a day. (3) Neck pain Is this a current diagnosis for this admission?: Yes Plan: This is almost certainly due to the arthritis in his neck. He has multilevel degenerative disc disease. He has a loss of the normal lordotic architecture of the cervical spine. He has disc space narrowing at multiple consecutive levels. He has bone spurring at various locations as well as facet hypertrophy at multiple levels. He could probably benefit from an outpatient consultation with a editorial specialist, but I am not sure how much relief surgery will give him. - Time Time Spent with patient: 25-34 minutes
[2018-08-26] MEDS: TOBRAMYCIN SULFATE/DEXAMETH OPH SUSP 2.5 ML OU SCH (17:20)
[2018-08-26] MEDS ORDERED: PHARMACY COMMUNICATION ORDER MC SCH (22:00)
[2018-08-27] MEDS: OXYCODONE-ACETAMINOPHEN 5-325 MG TABLET PO PRN ×2 (00:21→07:50)
[2018-08-27] MEDS: NORMAL SALINE 1000 ML 1,000 ML IV PRN (03:51)
[2018-08-27] MEDS: INSULIN LISPRO 100 UNIT/ML 3 ML VIAL SUBCUT PRN ×2 (07:51→12:08)
[2018-08-27] MEDS: LIDOCAINE 5% (700 MG) TRANSDERMAL ADH..PATCH TP SCH (10:14)
[2018-08-27] MEDS: ENOXAPARIN SODIUM INJ 40 MG/0.4 ML DISP.SYRIN SUBCUT SCH (10:15)
[2018-08-27] MEDS: TOBRAMYCIN SULFATE/DEXAMETH OPH SUSP 2.5 ML OU SCH (10:15)
[2018-08-27 10:22] LABS: ANION GAP 10 (5-19); BLOOD UREA NITROGEN 21 mg/dL (7-20); CARBON DIOXIDE 26 mmol/L (22-30); CHLORIDE 100 mmol/L (98-107); GLUCOSE 269 mg/dL (75-110); POTASSIUM 5.5 mmol/L (3.6-5.0); SODIUM 135.5 mmol/L (137-145)
[2018-08-27] MEDS: ACETAMINOPHEN 325 MG TABLET PO PRN (10:39)
[2018-08-27 14:34] VITALS: BP 150/76
--- NOTE | 2018-08-27 17:58 | PDOC DISCHARGE SUMMARY ---
General - Admit/Disc Date/PCP Admission Date/Primary Care Provider: 08/25/18 22:10 DOROTHY TELLEZ MD Discharge Date: 08/27/18 - Discharge Diagnosis (1) Hyperkalemia Is this a current diagnosis for this admission?: Yes Summary: He has some chronically elevated potassium levels. I looked back as far as 2013 and it appears that his potassium typically run somewhere between 5.3 and 5.7. He was 5.5 at discharge. He was on lisinopril and a low-dose of HCTZ. I discontinued these medicines and changed him to a moderate dose of chlorthalidone. (2) Hypomagnesemia Is this a current diagnosis for this admission?: Yes Summary: This is also a chronic issue for him. I have recommended that he take his magnesium supplement twice a day instead of once a day as he was taken it before. (3) Neck pain Is this a current diagnosis for this admission?: Yes Summary: CT the cervical spine shows loss of the normal lordotic architecture of the cervical spine, multilevel loss of disc space height, bone spurring, as well as multilevel facet arthropathy and bony hypertrophy. I told him that he should get a referral to a intensive care medicine specialist just to hear the opinion, but I am not convinced that surgery is going to be able to help him. Right now he just has some periodic discomfort and limited range of motion, but he does not have any neuropathic symptoms. - Additional Information Resuscitation Status: Full Code Discharge Diet: Diabetic Discharge Activity: Activity As Tolerated Prescriptions: Chlorthalidone [Chlorthalidone 25 mg Tablet] 1 tab PO DAILY #30 tablet Home Medications: Simvastatin 40 mg PO DAILY 06/14/14 Aspirin [Aspirin EC] 81 mg PO DAILY 08/26/18 Cetirizine HCl [Zyrtec 10 mg Tablet] 1 tab PO DAILY 08/26/18 Cyclobenzaprine HCl [Flexeril 10 mg Tablet] 10 mg PO BID 08/26/18 Insulin Glargine,Hum.rec.anlog [Toukathleen Solbill] 120 unit SQ DAILY 08/26/18 Insulin Lispro [Humalog Kwikpen U-100] 15 unit SQ TID 08/26/18 Magnesium Oxide [Mag-Ox 400 mg Tablet] 400 mg PO DAILY 08/26/18 Metformin HCl [Metformin HCl ER] 1,000 mg PO BID 08/26/18 Tobramycin Sulfate/Dexameth [Tobradex Oph Drops 2.5 ml] 1 drop .ROUTE BID Chlorthalidone [Chlorthalidone 25 mg Tablet] 1 tab PO DAILY #30 tablet 08/27/18 History of Present Illness History of Present Illness: ALLAN NI is a 72 year old male with history of hypertension, hyperlipidemia and viral meningitis in 2013 comes to the emergency department complaining of neck pain and headaches. Patient has been in our emergency department before with similar symptomatology and sent home with pain medications. In the emergency department laboratory was sent and potassium came back up to 6.5. Patient is at home on lisinopril which is not a new medication for him, denies taking any potassium supplements or any over-the- counter vitamins. Patient has very mild CKD stage III. His main complaint and concern is his neck pain and he is unable to move his neck, CT of the neck was done on prior visit to the emergency department and shows chronic changes. Denies fever, chills, nausea, vomiting, chest pain, shortness of breath, cough, abdominal pain, changes in his urine or bowel movements. In the ED was given hyperkalemia cocktail with D50 with 10 units of insulin regular IV, 1 g of IV calcium gluconate, nebulizer treatments with albuterol. EKG with no peak T waves. Hospital Course Hospital Course: He was given some Kayexalate and some fluids and his potassium came down some. It seems to stabilize and arrange a 5.3-5.7 as noted above. I switched up his blood pressure medications as noted above in the hopes that this will help attenuate any further increase in his potassium. His magnesium was low which we replaced. I recommended that he take his magnesium supplement twice a day. His neck was evaluated as noted above. His labs and examination were reassuring and he was discharged today in good condition. Physical Exam Vital Signs: Temp Pulse Resp BP Pulse Ox 97.8 F 75 20 150/76 H 95 08/27/18 14:36 08/27/18 14:36 08/27/18 14:36 08/27/18 14:36 08/27/18 14:36 Intake & Output 08/26/18 08/27/18 08/28/18 06:59 06:59 06:59 Intake Total 2940 534 Output Total 300 200 Balance -300 2740 534 General appearance: PRESENT: no acute distress, cooperative, disheveled, morbidly obese Neck exam: PRESENT: tenderness - Mild point tenderness with palpation. ABSENT: full ROM Respiratory exam: PRESENT: clear to auscultation gerhard, unlabored. ABSENT: chest wall tenderness, rales, rhonchi, tachypnea, wheezes Cardiovascular exam: PRESENT: RRR, +S1, +S2. ABSENT: diastolic murmur, systolic murmur GI/Abdominal exam: PRESENT: normal bowel sounds, soft. ABSENT: guarding, rebound, tenderness Extremities exam: ABSENT: clubbing, pedal edema Musculoskeletal exam: PRESENT: ambulatory, normal inspection. ABSENT: deformity Neurological exam: PRESENT: alert, awake, oriented to person, oriented to place , oriented to time Psychiatric exam: PRESENT: appropriate affect, normal mood Results Laboratory Results: 08/27/18 09:44 08/27/18 09:44 Sodium 135.5 L Potassium 5.5 H Chloride 100 Carbon Dioxide 26 Anion Gap 10 BUN 21 H Creatinine 1.17 Est GFR ( Amer) > 60 Est GFR (Non-Af Amer) > 60 Glucose 269 H Calcium 9.0 Magnesium 1.6 Impressions: Cervical Spine CT 08/25/18 19:12 IMPRESSION: Degenerative disc disease, facet arthropathy. Mild spondylosis. No acute findings. Head CT 08/25/18 19:12 IMPRESSION: MILD CHRONIC MICROVASCULAR ISCHEMIA. NO ACUTE IMAGING FINDINGS IN THE BRAIN. EVIDENCE OF ACUTE STROKE: NO. Chest X-Ray 08/25/18 19:15 IMPRESSION: NO ACUTE RADIOGRAPHIC FINDING IN THE CHEST. Qualifiers - * PATIENT BEING DISCHARGED WITH ANY OF THE FOLLOWING DIAGNOSIS: No
== END 2018-08-27 15:53 | disposition home or self-care (01) ==
LOC: ER 18:47 → EH 22:10 → 5 08-26 00:20
PROVIDERS: ADMIT Internal Medicine; ATTEND Internal Medicine
DX: E87.5 Hyperkalemia (principal); E83.42 Hypomagnesemia; M47.892 Other spondylosis, cervical region; M50.33 Other cervical disc degeneration, cervicothoracic region; E78.5 Hyperlipidemia, unspecified; R51 Headache; I12.9 Hypertensive chronic kidney disease with stage 1 through stage 4 chronic kidney disease, or unspecified chronic kidney disease; E11.22 Type 2 diabetes mellitus with diabetic chronic kidney disease; N18.3 Chronic kidney disease, stage 3 (moderate); E66.01 Morbid (severe) obesity due to excess calories; F40.240 Claustrophobia; R05 Cough; Z79.899 Other long term (current) drug therapy; Z79.82 Long term (current) use of aspirin; Z79.4 Long term (current) use of insulin; Z86.19 Personal history of other infectious and parasitic diseases; Z87.891 Personal history of nicotine dependence
CPT/HCPCS: 93005; 94640; 99285; 96374; 96375; 36415 ×3; 87040; 82962 ×3; 83735 ×3; 84132; 85025; 85610; 80048 ×2; 80053; 81001; 83605; 71046; 70450; 72125; 93010; G0378 ×3; A9270 ×9; J0610; J3490 ×2; J1200; J1940; J2765; J1170; J3475; J7030 ×2; J1815

== ENCOUNTER 2019-11-11 10:52 | Emergency (ER) | payer MEDICARE, OTHER ==
--- NOTE | 2019-11-11 11:40 | ER Document Report ---
ED Medical Screen (RME) - General Chief Complaint: Shortness Of Breath Stated Complaint: ARM PAIN, SHORTNESS OF BREATH Time Seen by Provider: 11/11/19 11:33 Primary Care Provider: DOROTHY TELLEZ MD [Primary Care Provider] - Follow up as needed Notes: Patient is a 74-year-old male who presents to the emergency department with a chief complaint of shortness of breath. Patient states that he has had shortness of breath for the past few days. Patient also was also working in the yard recently. Patient does have a history of an NSTEMI and pneumonia recently. He was seen by his primary care provider and had a repeat chest x-ray, which was normal, but patient states that he still feels congested in his mid upper chest. He is currently on blood thinners. Patient denies any chest pain. Exam: S1-S2. Clear lung sounds throughout. I have greeted and performed a rapid initial assessment of this patient. A comprehensive ED assessment and evaluation of the patient, analysis of test results and completion of medical decision making process will be conducted by an additional ED providers. TRAVEL OUTSIDE OF THE [place] IN LAST 30 DAYS: No - Related Data Allergies/Adverse Reactions: No Known Allergies Allergy (Verified 11/11/19 11:30) Home Medications: Brilenta Past Medical History - Social History Chew tobacco use (# tins/day): No Drug Abuse: None - Past Medical History Cardiac Medical History: Reports: Hx Hypercholesterolemia, Hx Hypertension Pulmonary Medical History: Reports: Hx Bronchitis Endocrine Medical History: Reports: Hx Diabetes Mellitus Type 2 Renal/ Medical History: Denies: Hx Peritoneal Dialysis Psychiatric Medical History: Reports: Hx Post Traumatic Stress Disorder Past Surgical History: Reports: Hx Orthopedic Surgery - Left hand surgery Physical Exam - Vital signs Vitals: Temp Pulse Resp BP Pulse Ox 97.7 F 62 18 169/86 H 97 11/11/19 10:57 11/11/19 10:57 11/11/19 10:57 11/11/19 10:57 11/11/19 10:57 Course - Vital Signs Vital signs: Temp Pulse Resp BP Pulse Ox 97.7 F 62 18 169/86 H 97 11/11/19 10:57 11/11/19 10:57 11/11/19 10:57 11/11/19 10:57 11/11/19 10:57 Doctor's Discharge - Discharge Referrals: DOROTHY TELLEZ MD [Primary Care Provider] - Follow up as needed
[2019-11-11 12:16] LABS: ABSOLUTE EOSINOPHILS # (AUTO) 0.2 10^3/uL (0.0-0.6); ABSOLUTE LYMPHOCYTES (AUTO) 1.5 10^3/uL (0.5-4.7); ABSOLUTE MONOCYTES (AUTO) 0.6 10^3/uL (0.1-1.4); ABSOLUTE NEUT (AUTO) 3.7 10^3/uL (1.7-8.2); BASOPHILS % (AUTO) 0.1 % (0-2); EOSINOPHILS % (AUTO) 3.2 % (0-6); HEMATOCRIT 36.2 % (37.9-51.0); HEMOGLOBIN 11.9 g/dL (13.5-17.0); LYMPHOCYTES % (AUTO) 25.9 % (13-45); MEAN CORPUSCULAR HGB CONC 32.8 g/dL (32.0-36.0); MEAN CORPUSCULAR VOLUME 82 fl (80-97); MONOCYTES % (AUTO) 9.3 % (3-13); PLATELET COUNT 205 10^3/uL (150-450); RED CELL DISTRIBUTION WIDTH 15.9 % (11.5-14.0); SEGMENTED NEUTROPHILS % (AUTO) 61.5 % (42-78); TOTAL CELLS COUNTED % (AUTO) 100 %
[2019-11-11 12:30] LABS: ALBUMIN 4.4 g/dL (3.5-5.0); ALKALINE PHOSPHATASE 77 U/L (38-126); ANION GAP 15 (5-19); ASPARTATE AMINO TRANSFERASE 27 U/L (17-59); BILIRUBIN,DIRECT 0.2 mg/dL (0.0-0.4); BILIRUBIN,TOTAL 0.6 mg/dL (0.2-1.3); BLOOD UREA NITROGEN 19 mg/dL (7-20); CALCIUM 9.1 mg/dL (8.4-10.2); CARBON DIOXIDE 25 mmol/L (22-30); CHLORIDE 102 mmol/L (98-107); GLUCOSE 191 mg/dL (75-110); POTASSIUM 4.5 mmol/L (3.6-5.0); TOTAL PROTEIN 7.8 g/dL (6.3-8.2)
--- NOTE | 2019-11-11 17:30 | ER Document Report ---
ED General - General Chief Complaint: Shortness Of Breath Stated Complaint: ARM PAIN, SHORTNESS OF BREATH Time Seen by Provider: 11/11/19 11:33 Primary Care Provider: DOROTHY TELLEZ MD [ACTIVE STAFF] - Follow up as needed TRAVEL OUTSIDE OF THE [place] IN LAST 30 DAYS: No - Related Data Allergies/Adverse Reactions: No Known Allergies Allergy (Verified 11/11/19 11:30) Home Medications: Brilenta Past Medical History - Social History Smoking Status: Former Smoker Chew tobacco use (# tins/day): No Drug Abuse: None Family History: Reviewed & Not Pertinent Patient has suicidal ideation: No Patient has homicidal ideation: No - Past Medical History Cardiac Medical History: Reports: Hx Hypercholesterolemia, Hx Hypertension Pulmonary Medical History: Reports: Hx Bronchitis Endocrine Medical History: Reports: Hx Diabetes Mellitus Type 2 Renal/ Medical History: Denies: Hx Peritoneal Dialysis Psychiatric Medical History: Reports: Hx Post Traumatic Stress Disorder Past Surgical History: Reports: Hx Orthopedic Surgery - Left hand surgery Physical Exam - Vital signs Vitals: Temp Pulse Resp BP Pulse Ox 97.7 F 62 18 169/86 H 97 11/11/19 10:57 11/11/19 10:57 11/11/19 10:57 11/11/19 10:57 11/11/19 10:57 - Notes Notes: Patient presents emerge department complaining of shortness of breath after going off for the past several days. Says he only gets it at night when he lays down. Does not have it during the day and does not have it when he walks around. Associated with little bit of nonproductive cough that is been improving since the end of september. No fevers with this no chest pain or palpitations. And does not get short of breath walking around. Also reports he has had some increasing swelling of the lower extremities for the past several days. The seem to get better in the morning. Patient reports that he was admitted to the hospital at the end with a non-STEMI had a stent placed at that time he had CHF and questionable pneumonia was discharged home on antibiotics. Has not any follow-up visits. At the time of his presentation only have a shortness of breath he had no chest pain Patient also reports an episode of left arm pain last night his in his shoulder. Lasted for just a brief period of time. Not associated with any nausea vomiting diaphoresis shortness of breath chest pain or palpitations. Intermittent pain like this since his surgery. Denies any trauma or falls with this. Past medical history significant for hypertension diabetes CHF coronary artery disease with a non-STEMI. Also has a history of sleep apnea reports has not been sleeping well. He is scheduled to see someone next week to get fitted for a mask Social history does not smoke or drink at all. Medications on Brilinta Review of systems pertinent positives and negatives in HPI otherwise all the systems were reviewed and acutely negative PHYSICIAN EXAM -vital signs are noted triage note and note from triage reviewed GENERAL: Well-appearing, well-nourished and in __no acute distress____ HEAD: Atraumatic, normocephalic. EYES: Pupils equal round and reactive to light, extraocular movements intact, sclera anicteric, conjunctiva are normal. ENT: nares patent, oropharynx clear without exudates. Moist mucous membranes. NECK: supple without lymphadenopathy LUNGS: Breath sounds clear to auscultation bilaterally and equal. No wheezes rales or rhonchi. HEART: Regular rate and rhythm without murmurs no JVD ABDOMEN: Soft, nontender, normoactive bowel sounds. EXTREMITIES: No deformity he has +2 edema to mid calf. Is no palpable cords of the upper extremity clavicle and AC joint nontender with full range of motion NEUROLOGICAL: No focal neurological deficits. Moves all extremities spontaneously and on command. PSYCH: Normal mood, normal affect. SKIN: Warm, Dry, normal turgor, no rashes or lesions noted. BACK-nontender in the midline Differential diagnosis CHF right heart failure pneumonia Course - Re-evaluation Re-evalutation: 11/11/19 20:13 ED patient is remained stable chest x-ray was ordered from triage which was ordered by me because his troponin was elevated we ordered a repeat he is remained stable here. Remain clear with good O2 sats and no chest pain Medical decision making patient presents with orthopnea extremity edema. He really has notes of CHF and I wonder if part of this is related to his sleep apnea. Does admit to swelling of extremities though. He looks well and he can be discharged home and certainly no evidence to suggest he is having an acute coronary syndrome at this point he will be given a short course of Lasix and potassium. He has a follow-up appoint with family doctor next week. Was advised will need his blood pressure rechecked again. Was noted that his initial troponin was upper limits of normal but the second has come down like this may be a downward trend from his previous heart surgery At this time there is no indication for admission. I have discussed the findings with patient/family with return precautions and follow-up recommendations. Verbal discharge instructions given at the bedside and opportunity for questions given. Medication warnings were given if indicated. Patient is in agreement with this plan and has verbalized understanding of return precautions and the need for primary care follow-up as directed.. - Vital Signs Vital signs: Temp Pulse Resp BP Pulse Ox 97.7 F 76 21 H 164/93 H 96 11/11/19 10:57 11/11/19 19:29 11/11/19 19:29 11/11/19 19:29 11/11/19 19:29 - Laboratory Result Diagrams: 11/11/19 11:54 11/11/19 11:54 Laboratory results interpreted by me: 11/11/19 11/11/19 11:54 11:54 Hgb 11.9 L Hct 36.2 L RDW 15.9 H Est GFR (MDRD) Non-Af 58 L Glucose 191 H - EKG Interpretation by Me Additional EKG results interpreted by me: 11/11/19 20:15 His initial EKG shows a normal sinus rhythm some nonspecific ST wave changes anterior and lateral leads is new from previous EKG from August 2018 however since August he has had the NE his repeat EKG is unchanged from the first Discharge - Discharge Clinical Impression: Lower extremity edema Hypertension Qualifiers: Hypertension type: unspecified Qualified Code(s): I10 - Essential (primary) hypertension Disposition: HOME, SELF-CARE Additional Instructions: Please review the discharge instructions, they will tell you about your disease/injury and what you need to return to the ED for Return to the ED if you feel worse or can follow-up with your family doctor Currently develop any chest pain or shortness of breath with exertion Follow-up with your family doctor next week Your blood pressure was elevated today needs to be rechecked again in 1 to 2 weeks to determine if need to be on medication or have your medications adjusted. Untreated hypertension can cause heart attack stroke and kidney failure Prescriptions: Furosemide [Lasix 20 mg Tablet] 20 mg PO QAM #10 tablet Potassium Chloride 20 meq PO ASDIR PRN #10 tab.er.prt PRN Reason: Forms: Elevated Blood Pressure Referrals: DOROTHY TELLEZ MD [ACTIVE STAFF] - Follow up as needed
--- NOTE | 2019-11-11 18:20 | RADIOLOGY REPORT (SQ) ---
EXAM DESCRIPTION: CHEST 2 VIEWS COMPLETED DATE/TIME: 11/11/2019 6:08 pm REASON FOR STUDY: SOB COMPARISON: 08/25/2018 TECHNIQUE: Frontal and lateral radiographic views of the chest acquired. NUMBER OF VIEWS: Two view. LIMITATIONS: None. FINDINGS: LUNGS AND PLEURA: No pneumothorax. No consolidation or pleural effusion. MEDIASTINUM AND HILAR STRUCTURES: Stable. HEART AND VASCULAR STRUCTURES: Stable. BONES: No acute findings. HARDWARE: None in the chest. OTHER: No other significant finding. IMPRESSION: NO ACUTE FINDINGS. TECHNICAL DOCUMENTATION: JOB ID: [id number] [place]-72 2010 [employer]- All Rights Reserved Reading location - IP/workstation name: [email or web address]
--- NOTE | 2019-11-11 19:27 | EKG REPORT ---
SEVERITY:- ABNORMAL ECG - SINUS RHYTHM BORDERLINE LEFT AXIS DEVIATION NONSPECIFIC T ABNORMALITIES, LATERAL LEADS : Confirmed by: Nima Garcia MD 11-Nov-2019 19:27:14
--- NOTE | 2019-11-11 19:29 | EKG REPORT ---
SEVERITY:- ABNORMAL ECG - SINUS RHYTHM BORDERLINE LEFT AXIS DEVIATION ABNORMAL T, CONSIDER ISCHEMIA, LATERAL LEADS : Confirmed by: Nima Garcia MD 11-Nov-2019 19:27:46
[2019-11-11 19:30] VITALS: BP 164/93
[2019-11-11] MEDS ORDERED: FUROSEMIDE 20 MG TABLET PO ONE (20:05)
== END 2019-11-11 20:40 | disposition home or self-care (01) ==
LOC: ER 10:52
DX: R60.0 Localized edema (principal); I10 Essential (primary) hypertension; R06.02 Shortness of breath; Z87.891 Personal history of nicotine dependence; E11.9 Type 2 diabetes mellitus without complications
CPT/HCPCS: 93005; 99285; 36415; 85025; 80053; 84484; 71046; 93010; A9270

== ENCOUNTER 2020-02-16 17:01 | Inpatient (IN) | payer MEDICARE, OTHER ==
[2020-02-16 18:11] LABS: ABSOLUTE EOSINOPHILS # (AUTO) 0.1 10^3/uL (0.0-0.6); ABSOLUTE MONOCYTES (AUTO) 1.2 10^3/uL (0.1-1.4); ABSOLUTE NEUT (AUTO) 6.3 10^3/uL (1.7-8.2); BASOPHILS % (AUTO) 0.2 % (0-2); EOSINOPHILS % (AUTO) 1.2 % (0-6); HEMATOCRIT 33.3 % (37.9-51.0); HEMOGLOBIN 11.2 g/dL (13.5-17.0); LYMPHOCYTES % (AUTO) 20.4 % (13-45); MEAN CORPUSCULAR HEMOGLOBIN 27.5 pg (27.0-33.4); MEAN CORPUSCULAR HGB CONC 33.6 g/dL (32.0-36.0); MEAN CORPUSCULAR VOLUME 82 fl (80-97); MONOCYTES % (AUTO) 12.7 % (3-13); PLATELET COUNT 372 10^3/uL (150-450); RED BLOOD COUNT 4.07 10^6/uL (4.35-5.55); RED CELL DISTRIBUTION WIDTH 15.8 % (11.5-14.0); SEGMENTED NEUTROPHILS % (AUTO) 65.5 % (42-78); TOTAL CELLS COUNTED % (AUTO) 100 %; WHITE BLOOD COUNT 9.6 10^3/uL (4.0-10.5)
[2020-02-16 18:15] LABS: INTERNATIONAL RATION (INR) 1.19; PROTHROMBIN TIME 15.2 SEC (11.4-15.4)
[2020-02-16 18:19] LABS: VENOUS BLOOD BASE EXCESS -1.4 mmol/L; VENOUS BLOOD HCO3 23.7 mmol/L (20-32); VENOUS BLOOD PCO2 41.7 mmHg (35-63); VENOUS BLOOD PH 7.37 (7.30-7.42)
[2020-02-16 18:23] LABS: ALBUMIN 4.3 g/dL (3.5-5.0); ALKALINE PHOSPHATASE 99 U/L (38-126); ANION GAP 14 (5-19); ASPARTATE AMINO TRANSFERASE 27 U/L (17-59); BILIRUBIN,DIRECT 0.1 mg/dL (0.0-0.4); BILIRUBIN,TOTAL 0.9 mg/dL (0.2-1.3); BLOOD UREA NITROGEN 39 mg/dL (7-20); CALCIUM 9.1 mg/dL (8.4-10.2); CARBON DIOXIDE 23 mmol/L (22-30); CHLORIDE 101 mmol/L (98-107); GLUCOSE 125 mg/dL (75-110); POTASSIUM 5.2 mmol/L (3.6-5.0); TOTAL PROTEIN 8.1 g/dL (6.3-8.2)
--- NOTE | 2020-02-16 20:29 | ER Document Report ---
ED General - General Chief Complaint: Dizziness Stated Complaint: DIZZINESS Time Seen by Provider: 02/16/20 19:01 Information source: Patient TRAVEL OUTSIDE OF THE [place] IN LAST 30 DAYS: No - HPI Notes: 74-year-old male history of diabetes, hypertension, CHF, CAD with distant stent presents with approximately 1 week of throat pain and left upper jaw pain and anterior neck pain and approximately 4 days of productive nonbloody cough with 1 day of lightheadedness. Was evaluated by PCP via telehealth visit and started on penicillin for presumed strep throat but symptoms have not improved. Because of throat pain patient has not been taking adequate p.o. over the last several days. Patient says that he had a "pinch "of momentary pain in his chest at approximately 4 PM today at rest without any associated symptoms which did not remind him of previous anginal pain. Patient lives in house with 8 people, no known sick contacts. Patient has had subjective fever over the past week. Patient denies exertional chest pain, lower extremity edema, recent travel. - Related Data Allergies/Adverse Reactions: No Known Allergies Allergy (Verified 11/11/19 11:30) Home Medications: lisinopril, metformin, aspirin Past Medical History - General Information source: Patient - Social History Smoking Status: Unknown if Ever Smoked Family History: Reviewed & Not Pertinent Patient has suicidal ideation: No Patient has homicidal ideation: No - Past Medical History Cardiac Medical History: Reports: Hx Congestive Heart Failure, Hx Coronary Artery Disease, Hx Hypercholesterolemia, Hx Hypertension Pulmonary Medical History: Reports: Hx Bronchitis Endocrine Medical History: Reports: Hx Diabetes Mellitus Type 2 Renal/ Medical History: Denies: Hx Peritoneal Dialysis Psychiatric Medical History: Reports: Hx Post Traumatic Stress Disorder Past Surgical History: Reports: Hx Orthopedic Surgery - Left hand surgery Review of Systems - Review of Systems Notes: REVIEW OF SYSTEMS: CONSTITUTIONAL : +fever +chills EENT: Denies recent cold/sinus symptoms, +throat pain CARDIOVASCULAR: +chest pain, -AMISHA RESPIRATORY: +cough, denies shortness of breath. GASTROINTESTINAL: Denies abdominal pain, nausea/vomiting. GENITOURINARY: Denies difficulty urinating, painful urination. MUSCULOSKELETAL: +neck pain, back pain. SKIN: Denies rash or skin lesions. HEMATOLOGIC : Denies easy bruising or bleeding. LYMPHATIC: +swollen, enlarged glands. NEUROLOGICAL: Denies headache, denies change in gait. PSYCHIATRIC: Denies anxiety or stress or depression. Physical Exam - Vital signs Vitals: Temp Pulse Resp BP Pulse Ox 97.9 F 91 20 114/50 L 97 02/16/20 17:01 02/16/20 17:01 02/16/20 17:01 02/16/20 17:01 02/16/20 17:01 PHYSICAL EXAMINATION: GENERAL: Well-appearing, well-nourished and in no acute distress. HEAD: Atraumatic, normocephalic. EYES: Pupils equal round and appropriate constriction, sclera anicteric, conjunctiva are normal. ENT: nares patent, mildly dry mucous membranes. Tenderness over left parotid gland without overlying skin changes. No trismus, no soft palate swelling tenderness or discharge. moderate tonsillar edema with exudates, voice normal, speaking in full clear sentences, no drooling, normal uvula. NECK: Normal range of motion, supple with tender anterior cervical lymphadeno smiley. LUNGS: Breath sounds clear to auscultation bilaterally and equal. No wheezes rales or rhonchi. HEART: Regular rate and rhythm without murmurs ABDOMEN: Soft, nontender, no guarding, no masses, no CVAT EXTREMITIES: Normal range of motion, no pitting or edema. No cyanosis. NEUROLOGICAL: Awake, alert, conversing appropriately, moves all extremities spontaneously. PSYCH: Normal mood, normal affect. SKIN: Warm, Dry, normal turgor, no rashes or lesions noted. 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 most likely 2/2 very poor po intake since onset of pharyngitis, r/o peritonsillar abscess, periodontal abscess, sepsis, acs (unlikely but will r/o with serial trop given hx). plan: ekg trop ct face pen benzathine lactate fluids cxr reassess. No signs of impending airway obstruction or respiratory compromise, exam and presentation not consistent with Moise's angina 02/17/20 21:00 Patient found to have acute renal injury very likely secondary to dehydration from poor p.o. intake. Hypotension resolved with IV hydration, blood pressure remains stable in the ED after initial bolus. Given no clinical signs of fluid overload, no lower extremity edema, no overload on chest x-ray, patient given additional conservative hydration. Admitted to hospitalist. - Vital Signs Vital signs: Temp Pulse Resp BP Pulse Ox 97.8 F 96 16 129/58 H 98 02/17/20 01:01 02/17/20 01:01 02/17/20 01:01 02/17/20 01:01 02/17/20 01:01 - Laboratory Result Diagrams: 02/16/20 17:04 02/16/20 17:04 Laboratory results interpreted by me: 02/16/20 02/16/20 02/16/20 17:04 17:04 20:50 RBC 4.07 L Hgb 11.2 L Hct 33.3 L RDW 15.8 H Potassium 5.2 H BUN 39 H Creatinine 2.56 H Est GFR ( Amer) 30 L Est GFR (MDRD) Non-Af 25 L Glucose 125 H Urine Protein 100 H Urine Ascorbic Acid 20 H Discharge - Discharge Clinical Impression: Dehydration Pharyngitis Qualifiers: Pharyngitis/tonsillitis etiology: unspecified etiology Qualified Code(s): J02.9 - Acute pharyngitis, unspecified Acute renal failure Qualifiers: Acute renal failure type: unspecified Qualified Code(s): N17.9 - Acute kidney failure, unspecified Condition: Fair Disposition: ADMITTED INPATIENT Admitting Provider: Jesus (Hospitalist) Unit Admitted: Telemetry
[2020-02-16 20:43] LABS: TROPONIN I 0.022 ng/mL
[2020-02-16] MEDS ORDERED: NORMAL SALINE 500 ML IV ONE (20:44)
[2020-02-16 21:06] LABS: A TYPE INFLUENZA AG NEGATIVE (NEGATIVE); B INFLUENZA AG NEGATIVE (NEGATIVE)
--- NOTE | 2020-02-16 21:10 | RADIOLOGY REPORT (SQ) ---
EXAM DESCRIPTION: XR CHEST 1 VIEW COMPLETED DATE/TME: 02/16/2020 19:55 CLINICAL HISTORY: 74 years, Male, cp COMPARISON: Multiple priors, most recent from 11/11/2019 NUMBER OF VIEWS: One TECHNIQUE: Single frontal view of the chest was obtained portably LIMITATIONS: None. FINDINGS: Cardiac and mediastinal contours are stable. Lung volumes are low. No focal consolidation, pleural effusion, or pneumothorax is evident. IMPRESSION: Negative low lung volume study. copyright 2010 [employer]- All Rights Reserved
--- NOTE | 2020-02-16 21:21 | EKG REPORT ---
SEVERITY:- ABNORMAL ECG - SINUS RHYTHM LEFT AXIS DEVIATION BORDERLINE R WAVE PROGRESSION, ANTERIOR LEADS ABNORMAL T, CONSIDER ISCHEMIA, LATERAL LEADS : Confirmed by: Gale Larios MD 16-Feb-2020 21:21:22
--- NOTE | 2020-02-16 21:36 | RADIOLOGY REPORT (SQ) ---
INDICATION: r/o tracking periodontal/left parotid abscess. COMPARISON: None CORRELATION: None TECHNIQUE: Noncontrast spiral axial CT images were obtained of the facial bones. Multiplanar reconstructions. This exam was performed according to our departmental dose-optimization program, which includes automated exposure control, adjustment of the mA and/or kV according to patient size and/or use of iterative reconstruction techniques. FINDINGS: Examination is not adequate for evaluation of intracranial contents. No acute displaced fracture seen of the facial bones. Alignment is anatomic. The paranasal sinuses are grossly clear. Mastoid air cells are clear. Orbits and eyeballs are unremarkable.. Poor dentition. Several missing teeth. Significant artifact from dental prostheses and amalgam. Osteoarthritis IMPRESSION: No acute bony injury is seen to the face. Poor dentition. Significant artifact from dental prostheses and amalgam.
[2020-02-16 21:57] LABS: APPEARANCE,URINE CLOUDY; BILIRUBIN,URINE NEGATIVE (NEGATIVE); COLOR,URINE YELLOW; GLUCOSE, URINE NEGATIVE (NEGATIVE); KETONES,URINE NEGATIVE (NEGATIVE); LEUKOCYTE ESTERASE,URINE NEGATIVE (NEGATIVE); NITRITE,URINE NEGATIVE (NEGATIVE); PROTEIN,URINE 100 mg/dL (NEGATIVE); URINE SPECIFIC GRAVITY 1.019; UROBILINOGEN,URINE NEGATIVE mg/dL (<2.0)
[2020-02-16] MEDS ORDERED: PENICILLIN G BENZATHINE 1.2 MILLION UNIT/2 ML DISP.SYRIN IM ONE (22:05)
[2020-02-16 22:07] LABS: URINE CREATININE 194.8 mg/dL (22-328)
[2020-02-16] MEDS ORDERED: DEXTROSE 50%-WATER 25 GM/50 ML DISP.SYRIN IV PRN ×2 (22:40)
[2020-02-16] MEDS ORDERED: GLUCAGON,HUMAN RECOMB 1 MG INJ IM PRN (22:40)
[2020-02-16] MEDS ORDERED: DEXTROSE 40% GEL 15 GM TUBE PO PRN ×2 (22:40)
[2020-02-16] MEDS ORDERED: ACETAMINOPHEN 325 MG TABLET PO PRN (22:40)
[2020-02-16] MEDS ORDERED: IPRATROPIUM/ALBUTEROL 0.5-2.5 MG/3 ML AMPUL NEB PRN (22:40)
[2020-02-16] MEDS ORDERED: MAG HYDROX/AL HYDROX/SIMETH SUSP 30 ML UDCUP PO PRN (22:40)
[2020-02-16] MEDS ORDERED: MAGNESIUM HYDROXIDE SUSP 30 ML UDCUP PO PRN (22:40)
[2020-02-16] MEDS ORDERED: DOXYCYCLINE HYCLATE 100 MG TABLET PO ONE (23:00)
[2020-02-17] MEDS: NORMAL SALINE 1000 ML 1,000 ML IV PRN ×3 (01:16→17:00)
[2020-02-17 04:58] LABS: ANION GAP 9 (5-19); BLOOD UREA NITROGEN 51 mg/dL (7-20); CALCIUM 8.2 mg/dL (8.4-10.2); CARBON DIOXIDE 23 mmol/L (22-30); CHLORIDE 104 mmol/L (98-107); GLUCOSE 156 mg/dL (75-110); POTASSIUM 4.9 mmol/L (3.6-5.0)
[2020-02-17] MEDS: HEPARIN SOD (PORCINE) 5,000 UNIT/ML 1 ML VIAL SUBCUT SCH ×3 (05:17→21:24)
--- NOTE | 2020-02-17 05:43 | PDOC H&P ---
History of Present Illness Admission Date/PCP: 02/16/20 22:52 AYDE MICHAELS MD Patient complains of: Left submandibular pain History of Present Illness: ALLAN NI is a 74 year old male with a past medical history of diabetes, hypertension, coronary artery disease with stent, congestive heart failure with unknown ejection fraction. He presents with 1 week of left submandibular pain and right foot cellulitis diagnosed by primary care and was prescribed Bactrim. Patient has had 3 days of Bactrim with improvement of right foot erythema but persistent left submandibular pain. Exam reveals left submandibular pain to palpation, CT unremarkable for dental abscess though obscured by dental filling. There is no leukocytosis however he is found to have acute renal failure and hyperkalemia. He receives IV fluids and referred to the hospitalist for admission. He denies fever cough nausea vomiting or infectious contacts for COVID. Past Medical History Cardiac Medical History: Reports: Congestive Heart Failure, Coronary Artery Disease, Hyperlipidema, Hypertension Pulmonary Medical History: Reports: Bronchitis Endocrine Medical History: Reports: Diabetes Mellitus Type 2 Psychiatric Medical History: Reports: Post Traumatic Stress Disorder Past Surgical History Past Surgical History: Reports: Orthopedic Surgery - Left hand surgery Social History Information Source: Patient, Emergency Med Personnel, [facility] Records Lives with: Spouse/Significant other Smoking Status: Unknown if Ever Smoked Frequency of Alcohol Use: Occasional Hx Recreational Drug Use: No Drugs: None Hx Prescription Drug Abuse: No - Advance Directive Resuscitation Status: Full Code Family History Family History: Hypertension Parental Family History Reviewed: Yes Children Family History Reviewed: Yes Sibling(s) Family History Reviewed.: Yes Medication/Allergy Home Medications: Simvastatin 40 mg PO DAILY 06/14/14 Aspirin [Aspirin EC] 81 mg PO DAILY 08/26/18 Cetirizine HCl [Zyrtec 10 mg Tablet] 1 tab PO DAILY 08/26/18 Cyclobenzaprine HCl [Flexeril 10 mg Tablet] 10 mg PO BID 08/26/18 Insulin Glargine,Hum.rec.anlog [Toupartho Solostar] 120 unit SQ DAILY 08/26/18 Insulin Lispro [Humalog Kwikpen U-100] 15 unit SQ TID 08/26/18 Magnesium Oxide [Mag-Ox 400 mg Tablet] 400 mg PO DAILY 08/26/18 Metformin HCl [Metformin HCl ER] 1,000 mg PO BID 08/26/18 Tobramycin Sulfate/Dexameth [Tobradex Oph Drops 2.5 ml] 1 drop .ROUTE BID 08/26/18 Chlorthalidone [Chlorthalidone 25 mg Tablet] 1 tab PO DAILY #30 tablet 08/27/18 Furosemide [Lasix 20 mg Tablet] 20 mg PO QAM #10 tablet 11/11/19 Potassium Chloride 20 meq PO ASDIR PRN #10 tab.er.prt 11/11/19 Allergies/Adverse Reactions: No Known Allergies Allergy (Verified 11/11/19 11:30) Review of Systems Constitutional: PRESENT: as per HPI, anorexia, headache(s). ABSENT: chills, fever(s), weight gain, weight loss Eyes: ABSENT: visual disturbances Ears: ABSENT: hearing changes Nose, Mouth, and Throat: PRESENT: headache(s), other - Pain with palpation to the left submandibular area. Cardiovascular: ABSENT: chest pain, dyspnea on exertion, edema, orthropnea, palpitations Respiratory: ABSENT: cough, hemoptysis Gastrointestinal: ABSENT: abdominal pain, constipation, diarrhea, hematemesis, hematochezia, nausea, vomiting Genitourinary: ABSENT: dysuria, hematuria Musculoskeletal: PRESENT: other - Right foot pain. ABSENT: joint swelling Integumentary: ABSENT: rash, wounds Neurological: ABSENT: abnormal gait, abnormal speech, confusion, dizziness, foca l weakness, syncope Psychiatric: ABSENT: anxiety, depression, homidical ideation, suicidal ideation Endocrine: ABSENT: cold intolerance, heat intolerance, polydipsia, polyuria Hematologic/Lymphatic: ABSENT: easy bleeding, easy bruising Physical Exam Vital Signs: Temp Pulse Resp BP Pulse Ox 97.3 F 87 16 116/64 100 02/17/20 03:58 02/17/20 03:58 02/17/20 03:58 02/17/20 03:58 02/17/20 03:58 Intake & Output 02/15/20 02/16/20 02/17/20 11:59 11:59 11:59 Intake Total 500 Balance 500 Weight 96.162 kg General appearance: PRESENT: no acute distress, well-developed, well-nourished Head exam: PRESENT: atraumatic, normocephalic Eye exam: PRESENT: conjunctiva pink, EOMI, PERRLA. ABSENT: scleral icterus Ear exam: PRESENT: normal external ear exam Mouth exam: PRESENT: moist, tongue midline Teeth exam: PRESENT: dental caries, poor dentation. ABSENT: dental tenderness Neck exam: PRESENT: lymphadenopathy - 1.5 x 0.5 cm tender lymphadenopathy left submandibular area. ABSENT: carotid bruit, JVD, thyromegaly Respiratory exam: PRESENT: clear to auscultation gerhard. ABSENT: rales, rhonchi, wheezes Cardiovascular exam: PRESENT: RRR. ABSENT: diastolic murmur, rubs, systolic murmur Pulses: PRESENT: normal dorsalis pedis pul Vascular exam: PRESENT: normal capillary refill GI/Abdominal exam: PRESENT: normal bowel sounds, soft. ABSENT: distended, guarding, mass, organolmegaly, rebound, tenderness Rectal exam: PRESENT: deferred Extremities exam: PRESENT: full ROM, other - Slight erythema to the dorsal aspect of the right foot greatly receded from prior markings.. ABSENT: calf tenderness, clubbing, joint swelling, pedal edema Neurological exam: PRESENT: alert, awake, oriented to person, oriented to place, oriented to time, oriented to situation, CN II-XII grossly intact. ABSENT: motor sensory deficit Psychiatric exam: PRESENT: appropriate affect, normal mood. ABSENT: homicidal ideation, suicidal ideation Skin exam: PRESENT: dry, intact, warm. ABSENT: cyanosis, rash Results Laboratory Results: 02/16/20 17:04 02/17/20 04:18 02/16/20 02/16/20 02/16/20 17:04 17:04 17:49 WBC 9.6 RBC 4.07 L Hgb 11.2 L Hct 33.3 L MCV 82 MCH 27.5 MCHC 33.6 RDW 15.8 H Plt Count 372 Seg Neutrophils % 65.5 VBG pH 7.37 VBG pCO2 41.7 VBG HCO3 23.7 VBG Base Excess -1.4 Sodium 138.3 Potassium 5.2 H Chloride 101 Carbon Dioxide 23 Anion Gap 14 BUN 39 H Creatinine 2.56 H Est GFR ( Amer) 30 L Glucose 125 H Lactic Acid Calcium 9.1 Total Bilirubin 0.9 AST 27 Alkaline Phosphatase 99 Total Protein 8.1 Albumin 4.3 Urine Color Urine Appearance Urine pH Ur Specific [place] Urine Protein Urine Glucose (UA) Urine Ketones Urine Blood Urine Nitrite Ur Leukocyte Esterase Urine WBC (Auto) Urine RBC (Auto) Urine Osmolality 0402/16/20 02/16/20 17:49 20:50 20:50 WBC RBC Hgb Hct MCV MCH MCHC RDW Plt Count Seg Neutrophils % VBG pH VBG pCO2 VBG HCO3 VBG Base Excess Sodium Potassium Chloride Carbon Dioxide Anion Gap BUN Creatinine Est GFR ( Amer) Glucose Lactic Acid 2.0 Calcium Total Bilirubin AST Alkaline Phosphatase Total Protein Albumin Urine Color YELLOW Urine Appearance CLOUDY Urine pH 5.0 Ur Specific [place] 1.019 Urine Protein 100 H Urine Glucose (UA) NEGATIVE Urine Ketones NEGATIVE Urine Blood NEGATIVE Urine Nitrite NEGATIVE Ur Leukocyte Esterase NEGATIVE Urine WBC (Auto) 4 Urine RBC (Auto) 9 Urine Osmolality 560 02/16/20 02/17/20 02/17/20 21:33 04:18 04:18 WBC RBC Hgb Hct MCV MCH MCHC RDW Plt Count Seg Neutrophils % VBG pH VBG pCO2 VBG HCO3 VBG Base Excess Sodium 136.4 L Potassium 4.9 Chloride 104 Carbon Dioxide 23 Anion Gap 9 BUN 51 H Creatinine 2.79 H Est GFR ( Amer) 27 L Glucose 156 H Lactic Acid 1.6 1.2 Calcium 8.2 L Total Bilirubin AST Alkaline Phosphatase Total Protein Albumin Urine Color Urine Appearance Urine pH Ur Specific [place] Urine Protein Urine Glucose (UA) Urine Ketones Urine Blood Urine Nitrite Ur Leukocyte Esterase Urine WBC (Auto) Urine RBC (Auto) Urine Osmolality 02/16/20 17:04 Troponin I 0.022 NT-Pro-B Natriuret Pep 247 Impressions: Chest X-Ray 02/16/20 19:55 IMPRESSION: Negative low lung volume study. copyright 2010 [employer]- All Rights Reserved Facial Bones CT 02/16/20 19:56 IMPRESSION: No acute bony injury is seen to the face. Poor dentition. Significant artifact from dental prostheses and amalgam. Assessment and Plan - Diagnosis (1) Acute renal failure Qualifiers: Acute renal failure type: unspecified Qualified Code(s): N17.9 - Acute kidney failure, unspecified Is this a current diagnosis for this admission?: Yes Plan: Likely secondary to Bactrim, Bactrim withheld, IV fluid challenge, follow-up chemistry (2) Salivary gland adenitis Is this a current diagnosis for this admission?: Yes Plan: Versus dental abscess not revealed by CT. Symptomatic management, trial doxycycline (3) Diabetes mellitus Qualifiers: Diabetes mellitus type: type 2 Diabetes mellitus senior living insulin use: without termite exterminator use Diabetes mellitus complication status: without complication Qualified Code(s): E11.9 - Type 2 diabetes mellitus without complications Is this a current diagnosis for this admission?: Yes Plan: Discontinue metformin while in renal failure, Lantus and Humalog sliding scale ordered. (4) HTN (hypertension) Qualifiers: Hypertension type: unspecified Qualified Code(s): I10 - Essential (primary) hypertension Is this a current diagnosis for this admission?: Yes Plan: Outpatient regiment (5) Hyperkalemia Is this a current diagnosis for this admission?: Yes Plan: Most likely secondary to Bactrim, IV fluid challenge, follow-up chemistry, consider Kayexalate or lactulose. - Time Time Spent with patient: 25-34 minutes - Inpatient Certification Medical Necessity: Need Close Monitoring Due to Risk of Patient Decompensation
[2020-02-17 07:18] LABS: ABSOLUTE EOSINOPHILS # (AUTO) 0.1 10^3/uL (0.0-0.6); ABSOLUTE LYMPHOCYTES (AUTO) 1.7 10^3/uL (0.5-4.7); ABSOLUTE MONOCYTES (AUTO) 0.9 10^3/uL (0.1-1.4); TOTAL CELLS COUNTED % (AUTO) 100 %
[2020-02-17 07:25] LABS: ABSOLUTE NEUT (AUTO) 2.9 10^3/uL (1.7-8.2); BASOPHILS % (AUTO) 0.3 % (0-2); EOSINOPHILS % (AUTO) 1.4 % (0-6); HEMATOCRIT 29.3 % (37.9-51.0); HEMOGLOBIN 9.5 g/dL (13.5-17.0); LYMPHOCYTES % (AUTO) 30.5 % (13-45); MEAN CORPUSCULAR HEMOGLOBIN 26.9 pg (27.0-33.4); MEAN CORPUSCULAR HGB CONC 32.6 g/dL (32.0-36.0); MEAN CORPUSCULAR VOLUME 83 fl (80-97); PLATELET COUNT 279 10^3/uL (150-450); RED BLOOD COUNT 3.54 10^6/uL (4.35-5.55); SEGMENTED NEUTROPHILS % (AUTO) 51.8 % (42-78); WHITE BLOOD COUNT 5.6 10^3/uL (4.0-10.5)
[2020-02-17] MEDS: INSULIN LISPRO 100 UNIT/ML 3 ML VIAL SUBCUT SCH ×4 (07:58→17:24)
--- NOTE | 2020-02-17 09:25 | PDOC PROGRESS REPORT ---
Subjective Progress Note for:: 02/17/20 Subjective:: 74 year old male with a past medical history of diabetes, hypertension, coronary artery disease with stent, congestive heart failure with unknown ejection fraction. He presents with 1 week of left submandibular pain and right foot cellulitis diagnosed by primary care and was prescribed Bactrim. Patient has had 3 days of Bactrim with improvement of right foot erythema but persistent left submandibular pain. Exam reveals left submandibular pain to palpation, CT unremarkable for dental abscess though obscured by dental filling. There is no leukocytosis however he is found to have acute renal failure and hyperkalemia. He receives IV fluids and referred to the hospitalist for admission. He denies fever cough nausea vomiting or infectious contacts for COVID. 02/17/2061-16-hhsh-old male with history of hypertension, coronary artery disease with stent placement, congestive heart failure with peripheral acute kidney injury and hyperkalemia. Repeat potassium is 4.9. Patient is on doxycycline for questionable right foot cellulitis. Plan is to continue IV fluids repeat the labs tomorrow. Comfortably in the bed communicating well. Reason For Visit: ARF,DM,HYPERKALEMIA Physical Exam Vital Signs: Temp Pulse Resp BP Pulse Ox 98.7 F 80 18 141/78 H 95 02/17/20 07:56 02/17/20 07:56 02/17/20 07:56 02/17/20 07:56 02/17/20 07:56 Intake & Output 02/16/20 02/17/20 02/18/20 06:59 06:59 06:59 Intake Total 1500 Balance 1500 Weight 96.2 kg General appearance: PRESENT: no acute distress, obese Head exam: PRESENT: atraumatic Eye exam: PRESENT: PERRLA Mouth exam: PRESENT: neck supple Teeth exam: PRESENT: poor dentation Neck exam: ABSENT: carotid bruit, JVD, lymphadenopathy, thyromegaly Respiratory exam: PRESENT: decreased breath sounds Cardiovascular exam: PRESENT: RRR. ABSENT: diastolic murmur, rubs, systolic murmur Vascular exam: PRESENT: normal capillary refill GI/Abdominal exam: PRESENT: normal bowel sounds, soft. ABSENT: distended, guarding, mass, organolmegaly, rebound, tenderness Rectal exam: PRESENT: deferred Extremities exam: PRESENT: full ROM. ABSENT: calf tenderness, clubbing, pedal edema Neurological exam: PRESENT: alert Psychiatric exam: PRESENT: appropriate affect, normal mood. ABSENT: homicidal ideation, suicidal ideation Results Laboratory Results: 02/17/20 06:43 02/17/20 04:18 02/16/20 02/16/20 02/16/20 17:04 17:04 17:49 WBC 9.6 RBC 4.07 L Hgb 11.2 L Hct 33.3 L MCV 82 MCH 27.5 MCHC 33.6 RDW 15.8 H Plt Count 372 Seg Neutrophils % 65.5 VBG pH 7.37 VBG pCO2 41.7 VBG HCO3 23.7 VBG Base Excess -1.4 Sodium 138.3 Potassium 5.2 H Chloride 101 Carbon Dioxide 23 Anion Gap 14 BUN 39 H Creatinine 2.56 H Est GFR ( Amer) 30 L Glucose 125 H Lactic Acid Calcium 9.1 Total Bilirubin 0.9 AST 27 Alkaline Phosphatase 99 Total Protein 8.1 Albumin 4.3 Urine Color Urine Appearance Urine pH Ur Specific [place] Urine Protein Urine Glucose (UA) Urine Ketones Urine Blood Urine Nitrite Ur Leukocyte Esterase Urine WBC (Auto) Urine RBC (Auto) Urine Osmolality 02/16/20 02/16/20 02/16/20 17:49 20:50 20:50 WBC RBC Hgb Hct MCV MCH MCHC RDW Plt Count Seg Neutrophils % VBG pH VBG pCO2 VBG HCO3 VBG Base Excess Sodium Potassium Chloride Carbon Dioxide Anion Gap BUN Creatinine Est GFR ( Amer) Glucose Lactic Acid 2.0 Calcium Total Bilirubin AST Alkaline Phosphatase Total Protein Albumin Urine Color YELLOW Urine Appearance CLOUDY Urine pH 5.0 Ur Specific [place] 1.019 Urine Protein 100 H Urine Glucose (UA) NEGATIVE Urine Ketones NEGATIVE Urine Blood NEGATIVE Urine Nitrite NEGATIVE Ur Leukocyte Esterase NEGATIVE Urine WBC (Auto) 4 Urine RBC (Auto) 9 Urine Osmolality 560 02/16/20 02/17/20 02/17/20 21:33 04:18 04:18 WBC RBC Hgb Hct MCV MCH MCHC RDW Plt Count Seg Neutrophils % VBG pH VBG pCO2 VBG HCO3 VBG Base Excess Sodium 136.4 L Potassium 4.9 Chloride 104 Carbon Dioxide 23 Anion Gap 9 BUN 51 H Creatinine 2.79 H Est GFR ( Amer) 27 L Glucose 156 H Lactic Acid 1.6 1.2 Calcium 8.2 L Total Bilirubin AST Alkaline Phosphatase Total Protein Albumin Urine Color Urine Appearance Urine pH Ur Specific [place] Urine Protein Urine Glucose (UA) Urine Ketones Urine Blood Urine Nitrite Ur Leukocyte Esterase Urine WBC (Auto) Urine RBC (Auto) Urine Osmolality 02/17/20 06:43 WBC 5.6 RBC 3.54 L Hgb 9.5 L Hct 29.3 L MCV 83 MCH 26.9 L MCHC 32.6 RDW 16.0 H Plt Count 279 Seg Neutrophils % 51.8 VBG pH VBG pCO2 VBG HCO3 VBG Base Excess Sodium Potassium Chloride Carbon Dioxide Anion Gap BUN Creatinine Est GFR ( Amer) Glucose Lactic Acid Calcium Total Bilirubin AST Alkaline Phosphatase Total Protein Albumin Urine Color Urine Appearance Urine pH Ur Specific [place] Urine Protein Urine Glucose (UA) Urine Ketones Urine Blood Urine Nitrite Ur Leukocyte Esterase Urine WBC (Auto) Urine RBC (Auto) Urine Osmolality 02/16/20 17:04 Troponin I 0.022 NT-Pro-B Natriuret Pep 247 Impressions: Chest X-Ray 02/16/20 19:55 IMPRESSION: Negative low lung volume study. copyright 2010 [employer]- All Rights Reserved Facial Bones CT 02/16/20 19:56 IMPRESSION: No acute bony injury is seen to the face. Poor dentition. Significant artifact from dental prostheses and amalgam. Assessment and Plan - Diagnosis (1) Acute renal failure Qualifiers: Acute renal failure type: unspecified Qualified Code(s): N17.9 - Acute kidney failure, unspecified Is this a current diagnosis for this admission?: Yes Plan: Likely secondary to Bactrim, Bactrim withheld, IV fluid challenge, follow-up chemistry 02/17/2020-patient's baseline creatinine is 1.21 on admission serum creatinine is 2.59 it was sent to 2.8 today. Remains on hold onto plan to continue IV fluids and plan is to recheck the labs tomorrow. Patient has history of underlying CKD. (2) Salivary gland adenitis Is this a current diagnosis for this admission?: Yes Plan: Versus dental abscess not revealed by CT. Symptomatic management, trial doxycycline 02/17/2020-CT of the facial bones was done no evidence of abscess seen. Plan is to continue p.o. doxycycline at this moment. (3) Diabetes mellitus Qualifiers: Diabetes mellitus type: type 2 Diabetes mellitus prison insulin use: without prison use Diabetes mellitus complication status: without complication Qualified Code(s): E11.9 - Type 2 diabetes mellitus without complications Is this a current diagnosis for this admission?: No Plan: Discontinue metformin while in renal failure, Lantus and Humalog sliding scale ordered. 02/17/2020-patient has history of type 2 diabetes mellitus on long-term insulin Plan to check for hemoglobin A1c and he was started on insulin sliding scale before meals and at bedtime. Diet exercise weight loss lifestyle modifications discussed with the patient. (4) HTN (hypertension) Qualifiers: Hypertension type: unspecified Qualified Code(s): I10 - Essential (primary) hypertension Is this a current diagnosis for this admission?: No Plan: Outpatient regiment 02/17/2020-patient blood pressure is 116/64 today he is on chlorthalidone and furosemide at home plan is to hold medications at this time. (5) Hyperkalemia Is this a current diagnosis for this admission?: Yes Plan: Most likely secondary to Bactrim, IV fluid challenge, follow-up chemistry, consider Kayexalate or lactulose. 02/17/2020-admitted with a serum potassium of five-point 2 repeat potassium is 4.9 today. Patient is on potassium supplementations at home though supplementations are on hold. Hyperkalemia may be secondary to COMFORT. (6) Obesity (BMI 30.0-34.9) Is this a current diagnosis for this admission?: No Plan: 02/17/2020-patient's BMI is more than 32 diet exercise lifestyle modifications discussed with the patient.
[2020-02-17] MEDS: DOCUSATE SODIUM 100 MG CAPSULE PO SCH ×2 (10:50→17:25)
[2020-02-17] MEDS: DOXYCYCLINE HYCLATE 100 MG TABLET PO SCH ×2 (11:42→21:24)
[2020-02-17] MEDS ORDERED: NITROGLYCERIN 0.4 MG/TAB 25 TAB/BOTTLE SL PRN (13:08)
[2020-02-17] MEDS ORDERED: INSULIN LISPRO 15 UNIT SQ SCH (14:00)
[2020-02-17] MEDS: TICAGRELOR 90 MG TABLET PO SCH ×2 (14:53→21:24)
[2020-02-17] MEDS ORDERED: TICAGRELOR 90 MG TABLET PO SCH (18:00)
[2020-02-18] MEDS: NORMAL SALINE 1000 ML 1,000 ML IV PRN (01:22)
[2020-02-18 05:33] LABS: ABSOLUTE EOSINOPHILS # (AUTO) 0.1 10^3/uL (0.0-0.6); ABSOLUTE LYMPHOCYTES (AUTO) 1.5 10^3/uL (0.5-4.7); ABSOLUTE MONOCYTES (AUTO) 0.7 10^3/uL (0.1-1.4); BASOPHILS % (AUTO) 0.3 % (0-2); EOSINOPHILS % (AUTO) 1.8 % (0-6); HEMATOCRIT 29.5 % (37.9-51.0); HEMOGLOBIN 9.8 g/dL (13.5-17.0); LYMPHOCYTES % (AUTO) 23.1 % (13-45); MEAN CORPUSCULAR HEMOGLOBIN 27.3 pg (27.0-33.4); MEAN CORPUSCULAR HGB CONC 33.3 g/dL (32.0-36.0); MEAN CORPUSCULAR VOLUME 82 fl (80-97); MONOCYTES % (AUTO) 11.8 % (3-13); PLATELET COUNT 295 10^3/uL (150-450); TOTAL CELLS COUNTED % (AUTO) 100 %; WHITE BLOOD COUNT 6.3 10^3/uL (4.0-10.5)
[2020-02-18] MEDS: HEPARIN SOD (PORCINE) 5,000 UNIT/ML 1 ML VIAL SUBCUT SCH (05:33)
[2020-02-18 06:00] LABS: ALBUMIN 3.6 g/dL (3.5-5.0); ALKALINE PHOSPHATASE 92 U/L (38-126); ANION GAP 13 (5-19); ASPARTATE AMINO TRANSFERASE 27 U/L (17-59); BILIRUBIN,DIRECT 0.4 mg/dL (0.0-0.4); BILIRUBIN,TOTAL 0.6 mg/dL (0.2-1.3); BLOOD UREA NITROGEN 34 mg/dL (7-20); CALCIUM 8.4 mg/dL (8.4-10.2); CARBON DIOXIDE 17 mmol/L (22-30); CHLORIDE 106 mmol/L (98-107); GLUCOSE 160 mg/dL (75-110); TOTAL PROTEIN 7.1 g/dL (6.3-8.2)
[2020-02-18] MEDS: MAGNESIUM SULFATE 1 GM/D5W 100 ML IV SCH ×2 (06:47→07:51)
[2020-02-18] MEDS: INSULIN LISPRO 100 UNIT/ML 3 ML VIAL SUBCUT SCH ×2 (07:39)
[2020-02-18] MEDS ORDERED: PANTOPRAZOLE SODIUM 40 MG TABLET.DR PO SCH (08:00)
[2020-02-18] MEDS: TICAGRELOR 90 MG TABLET PO SCH (09:18)
[2020-02-18] MEDS: DOXYCYCLINE HYCLATE 100 MG TABLET PO SCH (09:18)
[2020-02-18] MEDS: DOCUSATE SODIUM 100 MG CAPSULE PO SCH (09:19)
[2020-02-18] MEDS ORDERED: METOPROLOL SUCCINATE 25 MG TAB.SR.24H PO SCH (10:00)
[2020-02-18] MEDS ORDERED: ISOSORBIDE MONONITRATE 30 MG TAB.ER.24H PO SCH (10:00)
[2020-02-18] MEDS ORDERED: CHOLECALCIFEROL (D3) 1,000 UNIT (25 MCG) TABLET PO SCH (10:00)
[2020-02-18] MEDS ORDERED: INSULIN GLARGINE HUM REC ANLOG 15 UNIT SQ SCH (10:00)
[2020-02-18] MEDS ORDERED: ASPIRIN 81 MG TABLET, ENT COATED PO SCH (10:00)
[2020-02-18] MEDS ORDERED: ATORVASTATIN CALCIUM 40 MG TABLET PO SCH (10:00)
[2020-02-18 10:17] VITALS: BP 125/62
--- NOTE | 2020-02-18 10:50 | PDOC DISCHARGE SUMMARY ---
Impression - Admit/DC Date/PCP Admission Date/Primary Care Provider: 02/17/20 08:51 AYDE MICHAELS MD Discharge Date: 02/18/20 - Discharge Diagnosis (1) Acute renal failure Is this a current diagnosis for this admission?: Yes (2) Salivary gland adenitis Is this a current diagnosis for this admission?: Yes (3) Diabetes mellitus Is this a current diagnosis for this admission?: No (4) HTN (hypertension) Is this a current diagnosis for this admission?: No (5) Hyperkalemia Is this a current diagnosis for this admission?: Yes (6) Obesity (BMI 30.0-34.9) Is this a current diagnosis for this admission?: No - Assessment Summary: (1) Acute renal failure Qualifiers: Acute renal failure type: unspecified Qualified Code(s): N17.9 - Acute kidney failure, unspecified Is this a current diagnosis for this admission?: Yes Plan: Likely secondary to Bactrim, Bactrim withheld, IV fluid challenge, follow-up chemistry 02/17/2020-patient's baseline creatinine is 1.21 on admission serum creatinine is 2.59 it was sent to 2.8 today. Remains on hold onto plan to continue IV fluids and plan is to recheck the labs tomorrow. Patient has history of underlying CKD. 02/18/2020-latest serum creatinine is 1.5. Improved from 2.8 at the time of admission. Acute kidney injury is resolved. (2) Salivary gland adenitis Is this a current diagnosis for this admission?: Yes Plan: Versus dental abscess not revealed by CT. Symptomatic management, trial doxycycline 02/17/2020-CT of the facial bones was done no evidence of abscess seen. Plan is to continue p.o. doxycycline at this moment. 02/18/20-prescription for p.o. doxycycline is given for 5 days. (3) Diabetes mellitus Qualifiers: Diabetes mellitus type: type 2 Diabetes mellitus terminal operations supervisor insulin use: without terminal operations supervisor use Diabetes mellitus complication status: without complication Qualified Code(s): E11.9 - Type 2 diabetes mellitus without complications Is this a current diagnosis for this admission?: No Plan: Discontinue metformin while in renal failure, Lantus and Humalog sliding scale ordered. 02/17/2020-patient has history of type 2 diabetes mellitus on long-term insulin Plan to check for hemoglobin A1c and he was started on insulin sliding scale before meals and at bedtime. Diet exercise weight loss lifestyle modifications discussed with the patient. 02/18/2020-patient has history of type 2 diabetes mellitus he is on insulin sliding scale during the hospital stay and metformin was on hold. Latest blood sugar is 151. The globin A1c is 8.2. (4) HTN (hypertension) Qualifiers: Hypertension type: unspecified Qualified Code(s): I10 - Essential (primary) hypertension Is this a current diagnosis for this admission?: No Plan: Outpatient regiment 02/17/2020-patient blood pressure is 116/64 today he is on chlorthalidone and furosemide at home plan is to hold medications at this time. 02/18/20-latest blood pressure is 25/62. Patient is advised to continue furosemide but hold lisinopril at this time because of elevated serum potassium and COMFORT at the time of admission and he was advised to follow-up with primary care physician for repeat lab work. (5) Hyperkalemia Is this a current diagnosis for this admission?: Yes Plan: Most likely secondary to Bactrim, IV fluid challenge, follow-up chemistry, consider Kayexalate or lactulose. 02/17/2020-admitted with a serum potassium of five-point 2 repeat potassium is 4.9 today. Patient is on potassium supplementations at home though supplementations are on hold. Hyperkalemia may be secondary to COMFORT. 02/18/2020-patient came in with serum potassium of 5.2 and he is on potassium supplementations at home. He also came in with COMFORT. Serum potassium is 5.0 today patient was advised about low-salt diet low potassium diet and requested to do the lab work within next week at PCP office. (6) Obesity (BMI 30.0-34.9) Is this a current diagnosis for this admission?: No Plan: 02/17/2020-patient's BMI is more than 32 diet exercise lifestyle modifications discussed with the patient. - Additional Information Resuscitation Status: Full Code Discharge Diet: Diabetic Discharge Activity: Activity As Tolerated Referrals: AYDE MICHAELS MD [Primary Care Provider] - Follow up as needed Prescriptions: Doxycycline Hyclate [Vibramycin 100 mg Tablet] 100 mg PO Q12 #10 tablet Home Medications: Aspirin [Aspirin EC] 81 mg PO DAILY 08/26/18 Insulin Glargine,Hum.rec.anlog [Toupartho Solostar] 15 unit SQ DAILY 08/26/18 Insulin Lispro [Humalog Kwikpen U-100] 15 unit SQ TID 08/26/18 Metformin HCl [Metformin HCl ER] 1,000 mg PO BID 08/26/18 Furosemide [Lasix 20 mg Tablet] 20 mg PO QAM #10 tablet 11/11/19 Atorvastatin Calcium [Lipitor 40 mg Tablet] 40 mg PO DAILY 02/17/20 Cholecalciferol (Vitamin D3) [Vitamin D3 1000 Unit Tablet] 1,000 unit PO DAILY 02/17/20 Isosorbide Mononitrate [Imdur 30 mg Tablet.er] 15 mg PO DAILY 02/17/20 Metoprolol Succinate [Toprol Xl 25 mg Tab.sr] 25 mg PO DAILY 02/17/20 Nitroglycerin [Nitrostat 0.4 mg (1/150 Gr) Tabs 25/Bottle] 1 tab SL Q5MP PRN 02/17/20 Pantoprazole Sodium [Protonix [address] Tablet] 40 mg PO QAM 02/17/20 Ticagrelor [Brilinta 90 mg Tablet] 1 tab PO BID 02/17/20 Doxycycline Hyclate [Vibramycin 100 mg Tablet] 100 mg PO Q12 #10 tablet 02/18/20 Insulin Lispro [Humalog Insulin (Lispro) 100 unit/mL] 0 - 12 unit SUBCUT AC unit 02/18/20 History of Present Illiness History of Present Illness: ALLAN NI is a 74 year old male Physical Exam Vital Signs: Temp Pulse Resp BP Pulse Ox 97.4 F 90 14 125/62 97 02/18/20 10:07 02/18/20 10:07 02/18/20 10:07 02/18/20 10:07 02/18/20 10:07 Intake & Output 02/17/20 02/18/20 02/19/20 06:59 06:59 06:59 Intake Total 1500 1788 200 Balance 1500 1788 200 Weight 96.2 kg 93.7 kg General appearance: PRESENT: no acute distress, well-developed Head exam: PRESENT: atraumatic Eye exam: PRESENT: PERRLA Mouth exam: PRESENT: moist, tongue midline Teeth exam: PRESENT: poor dentation Neck exam: ABSENT: carotid bruit, JVD, lymphadenopathy, thyromegaly Respiratory exam: PRESENT: decreased breath sounds Cardiovascular exam: PRESENT: RRR. ABSENT: diastolic murmur, rubs, systolic murmur Pulses: PRESENT: normal dorsalis pedis pul GI/Abdominal exam: PRESENT: normal bowel sounds, soft. ABSENT: distended, guarding, mass, organolmegaly, rebound, tenderness Rectal exam: PRESENT: deferred Extremities exam: PRESENT: full ROM. ABSENT: calf tenderness, clubbing, pedal edema Neurological exam: PRESENT: alert, awake, oriented to person, oriented to place, oriented to time, oriented to situation, CN II-XII grossly intact. ABSENT: motor sensory deficit Psychiatric exam: PRESENT: appropriate affect, normal mood. ABSENT: homicidal ideation, suicidal ideation Skin exam: PRESENT: dry, intact, warm. ABSENT: cyanosis, rash Results Laboratory Results: WBC 6.3 10^3/uL (4.0-10.5) 02/18/20 05:07 RBC 3.60 10^6/uL (4.35-5.55) L 02/18/20 05:07 Hgb 9.8 g/dL (13.5-17.0) L 02/18/20 05:07 Hct 29.5 % (37.9-51.0) L 02/18/20 05:07 MCV 82 fl (80-97) 02/18/20 05:07 MCH 27.3 pg (27.0-33.4) 02/18/20 05:07 MCHC 33.3 g/dL (32.0-36.0) 02/18/20 05:07 RDW 16.0 % (11.5-14.0) H 02/18/20 05:07 Plt Count 295 10^3/uL (150-450) 02/18/20 05:07 Lymph % (Auto) 23.1 % (13-45) 02/18/20 05:07 Miller % (Auto) 11.8 % (3-13) 02/18/20 05:07 Eos % (Auto) 1.8 % (0-6) 02/18/20 05:07 Baso % (Auto) 0.3 % (0-2) 02/18/20 05:07 Absolute Neuts (auto) 4.0 10^3/uL (1.7-8.2) 02/18/20 05:07 Absolute Lymphs (auto) 1.5 10^3/uL (0.5-4.7) 02/18/20 05:07 Absolute Monos (auto) 0.7 10^3/uL (0.1-1.4) 02/18/20 05:07 Absolute Eos (auto) 0.1 10^3/uL (0.0-0.6) 02/18/20 05:07 Absolute Basos (auto) 0.0 10^3/uL (0.0-0.2) 02/18/20 05:07 Seg Neutrophils % 63.0 % (42-78) 02/18/20 05:07 ESR 93 mm/hr (0-20) H 02/17/20 06:43 PT 15.2 SEC (11.4-15.4) 02/16/20 14:07 INR 1.19 02/16/20 14:07 VBG pH 7.37 (7.30-7.42) 02/16/20 17:49 VBG pCO2 41.7 mmHg (35-63) 02/16/20 17:49 VBG HCO3 23.7 mmol/L (20-32) 02/16/20 17:49 VBG Base Excess -1.4 mmol/L 02/16/20 17:49 Sodium 135.5 mmol/L (137-145) L 02/18/20 05:07 Potassium 5.0 mmol/L (3.6-5.0) 02/18/20 05:07 Chloride 106 mmol/L (98-107) 02/18/20 05:07 Carbon Dioxide 17 mmol/L (22-30) L 02/18/20 05:07 Anion Gap 13 (5-19) 02/18/20 05:07 BUN 34 mg/dL (7-20) H 02/18/20 05:07 Creatinine 1.50 mg/dL (0.52-1.25) H 02/18/20 05:07 Est GFR ( Amer) 55 (>60) L 02/18/20 05:07 Est GFR (MDRD) Non-Af 46 (>60) L 02/18/20 05:07 Glucose 160 mg/dL (75-110) H 02/18/20 05:07 POC Glucose 151 mg/dL (70-110) H 02/18/20 06:12 Hemoglobin A1c % 8.2 % (4.7-6.0) H 02/17/20 06:43 Lactic Acid 1.2 mmol/L (0.7-2.1) 02/17/20 04:18 Calcium 8.4 mg/dL (8.4-10.2) 02/18/20 05:07 Magnesium 1.1 mg/dL (1.6-2.3) L* 02/18/20 05:07 Total Bilirubin 0.6 mg/dL (0.2-1.3) 02/18/20 05:07 Direct Bilirubin 0.4 mg/dL (0.0-0.4) 02/18/20 05:07 Neonat Total Bilirubin Not Reportable 02/18/20 05:07 Neonat Direct Bilirubin Not Reportable 02/18/20 05:07 Neonat Indirect Bili Not Reportable 02/18/20 05:07 AST 27 U/L (17-59) 02/18/20 05:07 ALT 16 U/L (<50) 02/18/20 05:07 Alkaline Phosphatase 92 U/L (38-126) 02/18/20 05:07 Troponin I 0.022 ng/mL 02/16/20 17:04 NT-Pro-B Natriuret Pep 247 pg/mL (<450) 02/16/20 17:04 Total Protein 7.1 g/dL (6.3-8.2) 02/18/20 05:07 Albumin 3.6 g/dL (3.5-5.0) 02/18/20 05:07 Urine Color YELLOW 02/16/20 20:50 Urine Appearance CLOUDY 02/16/20 20:50 Urine pH 5.0 (5.0-9.0) 02/16/20 20:50 Ur Specific [place] 1.019 02/16/20 20:50 Urine Protein 100 mg/dL (NEGATIVE) H 02/16/20 20:50 Urine Glucose (UA) NEGATIVE mg/dL (NEGATIVE) 02/16/20 20:50 Urine Ketones NEGATIVE mg/dL (NEGATIVE) 02/16/20 20:50 Urine Blood NEGATIVE (NEGATIVE) 02/16/20 20:50 Urine Nitrite NEGATIVE (NEGATIVE) 02/16/20 20:50 Urine Bilirubin NEGATIVE (NEGATIVE) 02/16/20 20:50 Urine Urobilinogen NEGATIVE mg/dL (<2.0) 02/16/20 20:50 Ur Leukocyte Esterase NEGATIVE (NEGATIVE) 02/16/20 20:50 Urine WBC (Auto) 4 /HPF 02/16/20 20:50 Urine RBC (Auto) 9 /HPF 02/16/20 20:50 U Hyaline Cast (Auto) 47 /LPF 02/16/20 20:50 Urine Bacteria (Auto) 3+ /HPF 02/16/20 20:50 Squamous Epi Cells Auto 1 /HPF 02/16/20 20:50 Urine Mucus (Auto) MANY /LPF 02/16/20 20:50 Urine Osmolality 560 mOsm/kg (300-900) 02/16/20 20:50 Urine Creatinine 194.8 mg/dL (22-328) 02/16/20 20:50 Urine Sodium 88 mmol/L (30-90) 02/16/20 20:50 Urine Potassium 63.8 mmol/L (17-99) 02/16/20 20:50 Urine Ascorbic Acid 20 (NEGATIVE) H 02/16/20 20:50 Influenza A (Rapid) NEGATIVE (NEGATIVE) 02/16/20 20:25 Influenza B (Rapid) NEGATIVE (NEGATIVE) 02/16/20 20:25 Group A Strep Rapid NEGATIVE (NEGATIVE) 02/16/20 20:55 02/16/20 17:04 Troponin I 0.022 NT-Pro-B Natriuret Pep 247 Impressions: Chest X-Ray 02/16/20 19:55 IMPRESSION: Negative low lung volume study. copyright 2011 [employer]- All Rights Reserved Facial Bones CT 02/16/20 19:56 IMPRESSION: No acute bony injury is seen to the face. Poor dentition. Significant artifact from dental prostheses and amalgam. Stroke Is this a Stroke Patient?: No Stroke Pt being discharged on Anti-thrombolytic therapy?: No Reason(s) for not prescribing Anti-thrombolytic therapy:: Not indicated Acute Heart Failure - Is this a Heart Failure Patient?: No
== END 2020-02-18 10:49 | disposition home or self-care (01) | DRG 683 ==
LOC: ER 17:01 → EH 22:52 → 4S 02-17 00:58 → OBSVTOIN 02-17 08:51
PROVIDERS: ADMIT Internal Medicine; ATTEND Internal Medicine
DX: N17.9 Acute kidney failure, unspecified (principal); L03.115 Cellulitis of right lower limb; E87.5 Hyperkalemia; I11.0 Hypertensive heart disease with heart failure; K11.20 Sialoadenitis, unspecified; I25.10 Atherosclerotic heart disease of native coronary artery without angina pectoris; I50.9 Heart failure, unspecified; E11.9 Type 2 diabetes mellitus without complications; E86.0 Dehydration; E66.9 Obesity, unspecified; Z82.49 Family history of ischemic heart disease and other diseases of the circulatory system; Z79.4 Long term (current) use of insulin; Z95.5 Presence of coronary angioplasty implant and graft; Z68.31 Body mass index [BMI] 31.0-31.9, adult; Z79.82 Long term (current) use of aspirin
CPT/HCPCS: 36415; 70486; 71045; 80048; 80053; 81001; 82570; 82803; 82962; 83036; 83605; 83735; 83880; 83935; 84133; 84300; 84484; 85025; 85610; 85652; 86735; 87040; 87070; 87804; 87880; 93005; 93010; 96360; 96361; 96372; 99285; J0561; J1644; J1815; J3475; J3490; J7030; J7040

== ENCOUNTER 2020-03-05 15:20 | Inpatient (IN) | payer MEDICARE, OTHER ==
--- NOTE | 2020-03-05 15:37 | ER Document Report ---
ED Medical Screen (RME) - General Chief Complaint: Abnormal Lab Results Stated Complaint: ABNORMAL LABS Time Seen by Provider: 03/05/20 15:29 Primary Care Provider: AYDE MICHAELS MD [Primary Care Provider] - Follow up as needed Mode of Arrival: Ambulatory Information source: Patient Notes: Patient is a 74-year-old male presenting to the emergency department chief complaint of abnormal labs. Patient reports he had labs drawn 3 days ago at his primary care provider's office. They called him today and told him his potassium was 6.9. Patient does report taking a daily potassium replacement. He denies any symptoms today states he is feeling quite well. He does report that over the last couple of days he has had intermittent diarrhea. Patient is alert, oriented, nontoxic in appearance. I have greeted and performed a rapid initial assessment of this patient. A comprehensive ED assessment and evaluation of the patient, analysis of test results and completion of the medical decision making process will be conducted by additional ED providers. I have specifically instructed the patient or family members with the patient to immediately return to any nursing staff should anything change in the patient's condition or with their chief complaint. TRAVEL OUTSIDE OF THE [place] IN LAST 30 DAYS: No - Related Data Allergies/Adverse Reactions: No Known Allergies Allergy (Verified 11/11/19 11:30) Past Medical History - Past Medical History Cardiac Medical History: Reports: Hx Congestive Heart Failure, Hx Coronary Artery Disease, Hx Hypercholesterolemia, Hx Hypertension Pulmonary Medical History: Reports: Hx Bronchitis Endocrine Medical History: Reports: Hx Diabetes Mellitus Type 2 Renal/ Medical History: Denies: Hx Peritoneal Dialysis Psychiatric Medical History: Reports: Hx Post Traumatic Stress Disorder Past Surgical History: Reports: Hx Orthopedic Surgery - Left hand surgery Physical Exam - Vital signs Vitals: Temp Pulse Resp BP Pulse Ox 97.8 F 70 18 136/59 H 96 03/05/20 15:25 03/05/20 15:25 03/05/20 15:25 03/05/20 15:25 03/05/20 15:25 Course - Vital Signs Vital signs: Temp Pulse Resp BP Pulse Ox 97.8 F 70 18 136/59 H 96 03/05/20 15:25 03/05/20 15:25 03/05/20 15:25 03/05/20 15:25 03/05/20 15:25 Doctor's Discharge - Discharge Referrals: AYDE MICHAELS MD [Primary Care Provider] - Follow up as needed
[2020-03-05 17:25] LABS: ALBUMIN 4.4 g/dL (3.5-5.0); ALKALINE PHOSPHATASE 75 U/L (38-126); ANION GAP 9 (5-19); ASPARTATE AMINO TRANSFERASE 24 U/L (17-59); BILIRUBIN,TOTAL 0.7 mg/dL (0.2-1.3); BLOOD UREA NITROGEN 39 mg/dL (7-20); CALCIUM 9.9 mg/dL (8.4-10.2); CARBON DIOXIDE 19 mmol/L (22-30); CHLORIDE 108 mmol/L (98-107); GLUCOSE 117 mg/dL (75-110); TOTAL PROTEIN 7.9 g/dL (6.3-8.2)
[2020-03-05 17:35] LABS: POTASSIUM 7.6 mmol/L (3.6-5.0)
[2020-03-05] MEDS ORDERED: INSULIN REG, HUMAN 100 UNIT/ML 3 ML VIAL (PYX) IV ONE (17:37)
[2020-03-05] MEDS ORDERED: SODIUM POLYSTYRENE SULFONATE 15 GM/60 ML PO ONE (17:37)
[2020-03-05] MEDS ORDERED: DEXTROSE 50%-WATER 25 GM/50 ML DISP.SYRIN IV ONE (17:37)
[2020-03-05 17:44] LABS: ABSOLUTE EOSINOPHILS # (AUTO) 0.1 10^3/uL (0.0-0.6); ABSOLUTE LYMPHOCYTES (AUTO) 1.9 10^3/uL (0.5-4.7); ABSOLUTE MONOCYTES (AUTO) 0.8 10^3/uL (0.1-1.4); ABSOLUTE NEUT (AUTO) 5.1 10^3/uL (1.7-8.2); BASOPHILS % (AUTO) 0.1 % (0-2); EOSINOPHILS % (AUTO) 1.6 % (0-6); HEMATOCRIT 34.6 % (37.9-51.0); HEMOGLOBIN 11.4 g/dL (13.5-17.0); LYMPHOCYTES % (AUTO) 23.8 % (13-45); MEAN CORPUSCULAR HEMOGLOBIN 27.4 pg (27.0-33.4); MEAN CORPUSCULAR HGB CONC 32.9 g/dL (32.0-36.0); MEAN CORPUSCULAR VOLUME 83 fl (80-97); MONOCYTES % (AUTO) 10.2 % (3-13); PLATELET COUNT 207 10^3/uL (150-450); RED BLOOD COUNT 4.15 10^6/uL (4.35-5.55); RED CELL DISTRIBUTION WIDTH 17.9 % (11.5-14.0); SEGMENTED NEUTROPHILS % (AUTO) 64.3 % (42-78); TOTAL CELLS COUNTED % (AUTO) 100 %; WHITE BLOOD COUNT 7.9 10^3/uL (4.0-10.5)
[2020-03-05] MEDS: NORMAL SALINE 1000 ML 1,000 ML IV PRN ×2 (17:58→19:09)
[2020-03-05] MEDS ORDERED: MAGNESIUM SULFATE/D5W 1 GM/100 ML RTUPB IV ONE (18:17)
[2020-03-05 19:39] LABS: ALBUMIN 3.5 g/dL (3.5-5.0); ALKALINE PHOSPHATASE 66 U/L (38-126); ANION GAP 7 (5-19); ASPARTATE AMINO TRANSFERASE 17 U/L (17-59); BILIRUBIN,TOTAL 0.5 mg/dL (0.2-1.3); BLOOD UREA NITROGEN 36 mg/dL (7-20); CALCIUM 8.9 mg/dL (8.4-10.2); CARBON DIOXIDE 22 mmol/L (22-30); CHLORIDE 110 mmol/L (98-107); GLUCOSE 154 mg/dL (75-110); TOTAL PROTEIN 6.6 g/dL (6.3-8.2)
[2020-03-05 19:42] LABS: APPEARANCE,URINE CLEAR; BILIRUBIN,URINE NEGATIVE (NEGATIVE); COLOR,URINE STRAW; GLUCOSE, URINE 50 mg/dL (NEGATIVE); KETONES,URINE NEGATIVE (NEGATIVE); LEUKOCYTE ESTERASE,URINE NEGATIVE (NEGATIVE); NITRITE,URINE NEGATIVE (NEGATIVE); PROTEIN,URINE NEGATIVE (NEGATIVE); URINE SPECIFIC GRAVITY 1.012; UROBILINOGEN,URINE NEGATIVE mg/dL (<2.0)
[2020-03-05 19:44] LABS: POTASSIUM 5.8 mmol/L (3.6-5.0)
[2020-03-05] MEDS ORDERED: FUROSEMIDE 40 MG TABLET PO ONE (20:07)
[2020-03-05] MEDS ORDERED: NORMAL SALINE 1000 ML 1,000 ML IV ONE (20:07)
--- NOTE | 2020-03-05 20:13 | ER Document Report ---
ED General <SUZANNE ANGELO - Last Filed: 03/05/20 23:15> - General Mode of Arrival: Ambulatory Information source: Patient TRAVEL OUTSIDE OF THE [place] IN LAST 30 DAYS: No - HPI Onset: Other - 3 days ago labs were drawn with potassium of 5.9 Onset/Duration: Persistent Quality of pain: No pain Severity: None Pain Level: Denies Associated symptoms: None Exacerbated by: Denies Relieved by: Denies Similar symptoms previously: Yes Recently seen / treated by doctor: Yes <BRITTANY DEVINE - Last Filed: 03/06/20 22:37> - General Chief Complaint: Abnormal Lab Results Stated Complaint: ABNORMAL LABS Time Seen by Provider: 03/05/20 15:29 Notes: 74-year-old male presented to ED for complaint of abnormal labs. Patient states that he had labs drawn 3 days ago at his primary doctor's office and they called him today to tell him his potassium was 3.9. He states he does take daily potassium replacement he also eats multiple bananas and orange juice. He states he drinks orange juice most of the day. He is a diabetic I have informed him that when his potassium is high he cannot be eating bananas or drinking as much orange juice as he does. He is also was informed that orange juice is not good for his diabetes. He states he has not had any symptoms he does not feel ill at all except for his intermittent diarrhea that he has all the time. He was alert oriented respirations regular nonlabored speaking in full sentences. When I rechecked his potassium it was 7.6 with a magnesium of 1.2 sodium of 136.3 and chloride of 108. I did speak with Dr Weller who recommended Kaopectate 15 g by mouth and 25 g of D50 with insulin 10 units IV. I did contact the hospitalist for admission and they stated that he had to have all of his medications and fluids and his potassium had to be much lower before they could admit him. He was also given magnesium 1 g IV. After his treatment above at 7 PM his chemistry was repeated his potassium was now 5.8. I contacted Dr. Lee who is the hospitalist and he states the patient no longer needs to be admitted he can go home. I informed Dr. Lee that I did not feel comfortable discharging someone him with a potassium of 5.9. He requested that I order the patient Lasix give him another liter of fluids and order a chemistry for 10 PM. He states he will discharge the patient when the chemistry results. (BRITTANY DEVINE) - Related Data Allergies/Adverse Reactions: No Known Allergies Allergy (Verified 11/11/19 11:30) Past Medical History - General Information source: Patient - Social History Smoking Status: Never Smoker Frequency of alcohol use: Occasional Drug Abuse: None Lives with: Family Family History: Hypertension Patient has suicidal ideation: No Patient has homicidal ideation: No - Past Medical History Cardiac Medical History: Reports: Hx Congestive Heart Failure, Hx Coronary Artery Disease, Hx Hypercholesterolemia, Hx Hypertension Pulmonary Medical History: Reports: Hx Bronchitis EENT Medical History: Reports: None Neurological Medical History: Reports: None Endocrine Medical History: Reports: Hx Diabetes Mellitus Type 2 Renal/ Medical History: Reports: None Malignancy Medical History: Reports None GI Medical History: Reports: None Musculoskeletal Medical History: Reports None Skin Medical History: Reports None Psychiatric Medical History: Reports: Hx Post Traumatic Stress Disorder Traumatic Medical History: Reports: None Infectious Medical History: Reports: None Past Surgical History: Reports: Hx Orthopedic Surgery - Left hand surgery <BRITTANY DEVINE - Last Filed: 03/06/20 22:37> Review of Systems - Review of Systems Constitutional: No symptoms reported EENT: No symptoms reported Cardiovascular: No symptoms reported Respiratory: No symptoms reported Gastrointestinal: No symptoms reported Genitourinary: No symptoms reported Male Genitourinary: No symptoms reported Musculoskeletal: No symptoms reported Skin: No symptoms reported Hematologic/Lymphatic: No symptoms reported Neurological/Psychological: No symptoms reported -: Yes All other systems reviewed and negative <BRITTANY DEVINE - Last Filed: 03/06/20 22:37> Physical Exam - Vital signs Interpretation: Normal - General General appearance: Appears well, Alert - HEENT Head: Normocephalic, Atraumatic Eyes: Normal Pupils: PERRL - Respiratory Respiratory status: No respiratory distress Chest status: Nontender Breath sounds: Normal Chest palpation: Normal - Cardiovascular Rhythm: Regular Heart sounds: Normal auscultation Murmur: No - Abdominal Inspection: Normal Distension: No distension Bowel sounds: Normal Tenderness: Nontender Organomegaly: No organomegaly - Back Back: Normal, Nontender - Extremities General upper extremity: Normal inspection, Nontender, Normal color, Normal ROM, Normal temperature General lower extremity: Normal inspection, Nontender, Normal color, Normal ROM, Normal temperature, Normal weight bearing. No: Zach's sign - Neurological Neuro grossly intact: Yes Cognition: Normal Orientation: AAOx4 Benny Coma Scale Eye Opening: Spontaneous Benny Coma Scale Verbal: Oriented Benny Coma Scale Motor: Obeys Commands Benny Coma Scale Total: 15 Speech: Normal Motor strength normal: LUE, RUE, LLE, RLE Sensory: Normal - Psychological Associated symptoms: Normal affect, Normal mood - Skin Skin Temperature: Warm Skin Moisture: Dry Skin Color: Normal <BRITTANY DEVINE - Last Filed: 03/06/20 22:37> - Vital signs Vitals: Temp Pulse Resp BP Pulse Ox 97.8 F 70 18 136/59 H 96 03/05/20 15:25 03/05/20 15:25 03/05/20 15:25 03/05/20 15:25 03/05/20 15:25 Course - Laboratory Result Diagrams: 03/05/20 17:31 03/05/20 22:09 <SUZANNE ANGELO - Last Filed: 03/05/20 23:15> - Laboratory Result Diagrams: 03/05/20 17:31 03/06/20 05:02 <BRITTANY DEVINE - Last Filed: 03/06/20 22:37> - Re-evaluation Re-evalutation: 03/05/20 23:14 I assumed care of this patient at the end of the nurse practitioner shift. In short he came in with abnormal labs, known hyperkalemia. He had insulin, dextrose, Lasix, fluids, Kayexalate. His potassium remained high. Medicine was consulted regarding admission of this patient, asked for 1 more recheck, and had tentative plans for possible discharge. Upon seeing the patient's continued elevated potassium, Dr. Lee did in fact agree to admit the patient. (SUZANNE ANGELO) - Vital Signs Vital signs: Temp Pulse Resp BP Pulse Ox 97.5 F 79 12 150/72 H 97 03/06/20 15:00 03/06/20 19:54 03/06/20 19:54 03/06/20 19:54 03/06/20 19:54 - Laboratory Laboratory results interpreted by me: 03/05/20 03/05/2003/05/20 15:55 17:31 19:08 RBC 4.15 L Hgb 11.4 L Hct 34.6 L RDW 17.9 H Sodium 136.3 L Potassium 7.6 H* 5.8 H D Chloride 108 H 110 H Carbon Dioxide 19 L BUN 39 H 36 H Creatinine 1.34 H 1.27 H Est GFR (MDRD) Non-Af 52 L 55 L Glucose 117 H 154 H Magnesium 1.2 L* Lipase 1162.7 H Urine Glucose (UA) 03/05/20 03/05/20 19:16 22:09 RBC Hgb Hct RDW Sodium Potassium 5.7 H Chloride 110 H Carbon Dioxide 19 L BUN 33 H Creatinine Est GFR (MDRD) Non-Af 57 L Glucose 218 H Magnesium Lipase Urine Glucose (UA) 50 H Discharge - Discharge Admitting Provider: Jesus (Hospitalist) <SUZANNE ANGELO - Last Filed: 03/05/20 23:15> <BRITTANY DEVINE - Last Filed: 03/06/20 22:37> - Discharge Clinical Impression: Hyperkalemia, Hypomagnesemia Condition: Stable Disposition: ADMITTED INPATIENT
--- NOTE | 2020-03-05 21:40 | EKG REPORT ---
SEVERITY:- ABNORMAL ECG - SINUS RHYTHM LEFT AXIS DEVIATION BORDERLINE R WAVE PROGRESSION, ANTERIOR LEADS NONSPECIFIC T ABNORMALITIES, LATERAL LEADS : Confirmed by: Gale Larios MD 05-Mar-2020 21:40:16
--- NOTE | 2020-03-05 21:40 | EKG REPORT ---
SEVERITY:- OTHERWISE NORMAL ECG - SINUS RHYTHM LEFT AXIS DEVIATION : Confirmed by: Gale Larios MD 05-Mar-2020 21:40:06
--- NOTE | 2020-03-05 21:41 | EKG REPORT ---
SEVERITY:- ABNORMAL ECG - SINUS RHYTHM LEFT AXIS DEVIATION CONSIDER ANTERIOR INFARCT NONSPECIFIC T ABNORMALITIES, LATERAL LEADS : Confirmed by: Gale Larios MD 05-Mar-2020 21:40:29
[2020-03-05 22:37] LABS: ALBUMIN 3.6 g/dL (3.5-5.0); ALKALINE PHOSPHATASE 78 U/L (38-126); ANION GAP 10 (5-19); ASPARTATE AMINO TRANSFERASE 18 U/L (17-59); BILIRUBIN,TOTAL 0.4 mg/dL (0.2-1.3); BLOOD UREA NITROGEN 33 mg/dL (7-20); CALCIUM 8.7 mg/dL (8.4-10.2); CARBON DIOXIDE 19 mmol/L (22-30); CHLORIDE 110 mmol/L (98-107); GLUCOSE 218 mg/dL (75-110); POTASSIUM 5.7 mmol/L (3.6-5.0); TOTAL PROTEIN 6.8 g/dL (6.3-8.2)
[2020-03-05] MEDS ORDERED: LACTULOSE SYRUP 20 GM/30 ML UDCUP PO ONE (23:15)
[2020-03-05] MEDS ORDERED: MAG HYDROX/AL HYDROX/SIMETH SUSP 30 ML UDCUP PO PRN (23:15)
[2020-03-05] MEDS ORDERED: IPRATROPIUM/ALBUTEROL 0.5-2.5 MG/3 ML AMPUL NEB PRN (23:15)
[2020-03-06] MEDS ORDERED: TICAGRELOR 90 MG TABLET PO ONE (00:45)
[2020-03-06] MEDS ORDERED: TICAGRELOR 90 MG TABLET ONE (01:00)
[2020-03-06] MEDS: ACETAMINOPHEN 325 MG TABLET PO PRN ×4 (01:48→14:45)
--- NOTE | 2020-03-06 04:55 | PDOC H&P ---
History of Present Illness Admission Date/PCP: 03/05/20 23:22 AYDE MICHAELS MD Patient complains of: Abnormal labs History of Present Illness: ALLAN NI is a 74 year old male with a past medical history of diabetes, hypertension, coronary artery disease with stent on Brilinta, congestive heart failure with unknown ejection fraction on Lasix and supplemental potassium. He presents referred from primary care for hyperkalemia. His labs are repeated in the emergency department finding with abnormal labs including a prerenal azotemia with a BUN of 39 and a creatinine 1.3, potassium of 7.6 and magnesium of 1.2. He receives an IV saline challenge, dextrose, insulin, Kayexalate resulting in reduction of potassium to 5.8. He has no peak T waves he is referred to the hospitalist for admission. Patient admits to potassium supplementation in addition to an effort to consume orange juice and bananas daily. He receives education. He otherwise denies palpitations nausea vomiting or chest pain. He does admit to constipation. Past Medical History Cardiac Medical History: Reports: Congestive Heart Failure, Coronary Artery Disease, Hyperlipidema, Hypertension Pulmonary Medical History: Reports: Bronchitis EENT Medical History: Reports: None Neurological Medical History: Reports: None Endocrine Medical History: Reports: Diabetes Mellitus Type 2 Renal/ Medical History: Reports: None Malignancy Medical History: Reports: None GI Medical History: Reports: None Musculoskeltal Medical History: Reports: None Skin Medical History: Reports: None Psychiatric Medical History: Reports: Post Traumatic Stress Disorder Traumatic Medical History: Reports: None Infectious Medical History: Reports: None Past Surgical History Past Surgical History: Reports: Orthopedic Surgery - Left hand surgery Social History Information Source: Patient Lives with: Family Smoking Status: Never Smoker Frequency of Alcohol Use: Occasional Hx Recreational Drug Use: No Drugs: None Hx Prescription Drug Abuse: No - Advance Directive Resuscitation Status: Full Code Family History Family History: Hypertension Parental Family History Reviewed: Yes Children Family History Reviewed: Yes Sibling(s) Family History Reviewed.: Yes Medication/Allergy Home Medications: Aspirin [Aspirin EC] 81 mg PO DAILY 08/26/18 Insulin Glargine,Hum.rec.anlog [Toujeo Solostar] 15 unit SQ DAILY 08/26/18 Insulin Lispro [Humalog Kwikpen U-100] 15 unit SQ TID 10/18/18 Metformin HCl [Metformin HCl ER] 1,000 mg PO BID 08/26/18 Furosemide [Lasix 20 mg Tablet] 20 mg PO QAM #10 tablet 11/11/19 Atorvastatin Calcium [Lipitor 40 mg Tablet] 40 mg PO DAILY 02/17/20 Cholecalciferol (Vitamin D3) [Vitamin D3 1000 Unit Tablet] 1,000 unit PO DAILY 02/17/20 Isosorbide Mononitrate [Imdur 30 mg Tablet.er] 15 mg PO DAILY 02/17/20 Metoprolol Succinate [Toprol Xl 25 mg Tab.sr] 25 mg PO DAILY 02/17/20 Nitroglycerin [Nitrostat 0.4 mg (1/150 Gr) Tabs 25/Bottle] 1 tab SL Q5MP PRN 02/17/20 Pantoprazole Sodium [Protonix [address] Tablet] 40 mg PO QAM 02/17/20 Ticagrelor [Brilinta 90 mg Tablet] 1 tab PO BID 02/17/20 Doxycycline Hyclate [Vibramycin 100 mg Tablet] 100 mg PO Q12 #10 tablet 02/18/20 Insulin Lispro [Humalog Insulin (Lispro) 100 unit/mL] 0 - 12 unit SUBCUT AC unit 02/18/20 Allergies/Adverse Reactions: No Known Allergies Allergy (Verified 11/11/19 11:30) Review of Systems Constitutional: ABSENT: chills, fever(s), headache(s), weight gain, weight loss Eyes: ABSENT: visual disturbances Ears: ABSENT: hearing changes Cardiovascular: ABSENT: chest pain, dyspnea on exertion, edema, orthropnea, palpitations Respiratory: ABSENT: cough, hemoptysis Gastrointestinal: ABSENT: abdominal pain, constipation, diarrhea, hematemesis, hematochezia, nausea, vomiting Genitourinary: ABSENT: dysuria, hematuria Musculoskeletal: ABSENT: joint swelling Integumentary: ABSENT: rash, wounds Neurological: ABSENT: abnormal gait, abnormal speech, confusion, dizziness, focal weakness, syncope Psychiatric: ABSENT: anxiety, depression, homidical ideation, suicidal ideation Endocrine: ABSENT: cold intolerance, heat intolerance, polydipsia, polyuria Hematologic/Lymphatic: ABSENT: easy bleeding, easy bruising Physical Exam Vital Signs: Temp Pulse Resp BP Pulse Ox 97.7 F 74 16 134/87 H 100 03/06/20 00:14 03/06/20 02:00 03/06/20 00:14 03/06/20 00:14 03/06/20 00:14 Intake & Output 03/04/20 03/05/20 03/06/20 11:59 11:59 11:59 Intake Total 3100 Balance 3100 Weight 94.8 kg General appearance: PRESENT: no acute distress, well-developed, well-nourished Head exam: PRESENT: atraumatic, normocephalic Eye exam: PRESENT: conjunctiva pink, EOMI, PERRLA. ABSENT: scleral icterus Ear exam: PRESENT: normal external ear exam Mouth exam: PRESENT: moist, tongue midline Neck exam: ABSENT: carotid bruit, JVD, lymphadenopathy, thyromegaly Respiratory exam: PRESENT: clear to auscultation gerhard. ABSENT: rales, rhonchi, wheezes Cardiovascular exam: PRESENT: RRR. ABSENT: diastolic murmur, rubs, systolic murmur Pulses: PRESENT: normal dorsalis pedis pul Vascular exam: PRESENT: normal capillary refill GI/Abdominal exam: PRESENT: normal bowel sounds, soft. ABSENT: distended, gu arding, mass, organolmegaly, rebound, tenderness Rectal exam: PRESENT: deferred Extremities exam: PRESENT: full ROM. ABSENT: calf tenderness, clubbing, pedal edema Neurological exam: PRESENT: alert, awake, oriented to person, oriented to place, oriented to time, oriented to situation, CN II-XII grossly intact. ABSENT: mot or sensory deficit Psychiatric exam: PRESENT: appropriate affect, normal mood. ABSENT: homicidal ideation, suicidal ideation Skin exam: PRESENT: dry, intact, warm. ABSENT: cyanosis, rash Results Laboratory Results: 03/05/20 17:31 03/05/20 22:09 03/05/20 03/05/20 03/05/20 15:55 17:31 19:08 WBC 7.9 RBC 4.15 L Hgb 11.4 L Hct 34.6 L MCV 83 MCH 27.4 MCHC 32.9 RDW 17.9 H Plt Count 207 Seg Neutrophils % 64.3 Sodium 136.3 L 138.9 Potassium 7.6 H* 5.8 H D Chloride 108 H 110 H Carbon Dioxide 19 L 22 Anion Gap 9 7 BUN 39 H 36 H Creatinine 1.34 H 1.27 H Est GFR ( Amer) > 60 > 60 Glucose 117 H 154 H Calcium 9.9 8.9 Magnesium 1.2 L* Total Bilirubin 0.7 0.5 AST 24 17 Alkaline Phosphatase 75 66 Total Protein 7.9 6.6 Albumin 4.4 3.5 Lipase 1162.7 H Urine Color Urine Appearance Urine pH Ur Specific [place] Urine Protein Urine Glucose (UA) Urine Ketones Urine Blood Urine Nitrite Ur Leukocyte Esterase Urine WBC (Auto) 03/05/20 03/05/20 19:16 22:09 WBC RBC Hgb Hct MCV MCH MCHC RDW Plt Count Seg Neutrophils % Sodium 138.5 Potassium 5.7 H Chloride 110 H Carbon Dioxide 19 L Anion Gap 10 BUN 33 H Creatinine 1.23 Est GFR ( Amer) > 60 Glucose 218 H Calcium 8.7 Magnesium Total Bilirubin 0.4 AST 18 Alkaline Phosphatase 78 Total Protein 6.8 Albumin 3.6 Lipase Urine Color STRAW Urine Appearance CLEAR Urine pH 5.0 Ur Specific [place] 1.012 Urine Protein NEGATIVE Urine Glucose (UA) 50 H Urine Ketones NEGATIVE Urine Blood NEGATIVE Urine Nitrite NEGATIVE Ur Leukocyte Esterase NEGATIVE Urine WBC (Auto) 0 Assessment and Plan - Diagnosis (1) Hyperkalemia Is this a current diagnosis for this admission?: Yes Plan: Secondary to potassium supplementation, complicated by diet follow-up dietitian consult for patient education, continue Kayexalate, IV fluids, follow-up chemistry. (2) Hypomagnesemia Is this a current diagnosis for this admission?: Yes Plan: IV repletion, (3) Acute renal failure Qualifiers: Acute renal failure type: unspecified Qualified Code(s): N17.9 - Acute kidney failure, unspecified Is this a current diagnosis for this admission?: Yes Plan: Prerenal state, excessive Lasix suggest half dose and follow-up with primary care in 1 to 2 weeks (4) Dehydration Is this a current diagnosis for this admission?: Yes Plan: Reduce Lasix dose. (5) Diabetes mellitus Qualifiers: Diabetes mellitus type: type 2 Diabetes mellitus buttermaker continuous churn insulin use: without buttermaker continuous churn use Diabetes mellitus complication status: without complication Qualified Code(s): E11.9 - Type 2 diabetes mellitus without complications Is this a current diagnosis for this admission?: Yes Plan: Outpatient regiment metformin held, Humalog sliding scale ordered - Time Time Spent with patient: 25-34 minutes
[2020-03-06] MEDS: HEPARIN SOD (PORCINE) 5,000 UNIT/ML 1 ML VIAL SUBCUT SCH ×3 (05:03→21:06)
[2020-03-06 06:07] LABS: ANION GAP 8 (5-19); BLOOD UREA NITROGEN 30 mg/dL (7-20); CALCIUM 9.2 mg/dL (8.4-10.2); CARBON DIOXIDE 21 mmol/L (22-30); CHLORIDE 108 mmol/L (98-107); GLUCOSE 175 mg/dL (75-110); POTASSIUM 5.5 mmol/L (3.6-5.0)
[2020-03-06] MEDS: TICAGRELOR 90 MG TABLET PO SCH ×2 (10:02→21:07)
[2020-03-06] MEDS ORDERED: GLUCAGON,HUMAN RECOMB 1 MG INJ IM PRN ×2 (10:30)
[2020-03-06] MEDS ORDERED: DEXTROSE 50%-WATER SYRINGE 25 GM/50 ML DOSE IV PRN ×2 (10:30)
[2020-03-06] MEDS ORDERED: DEXTROSE 40% GEL 15 GM TUBE X 2 PO PRN ×2 (10:30)
[2020-03-06] MEDS ORDERED: DEXTROSE 50%-WATER SYRINGE 12.5 GM/25 ML DOSE IV PRN ×2 (10:30)
[2020-03-06] MEDS ORDERED: DEXTROSE 40% GEL 15 GM TUBE PO PRN ×2 (10:30)
[2020-03-06] MEDS ORDERED: MAGNESIUM SULFATE 4 GM/D5W 100 ML IV ONE (11:00)
[2020-03-06] MEDS ORDERED: CYCLOBENZAPRINE HCL 10 MG TABLET PO PRN (11:31)
[2020-03-06] MEDS ORDERED: NORMAL SALINE 1000 ML 1,000 ML IV PRN (11:37)
[2020-03-06] MEDS ORDERED: INSULIN GLARGINE HUM REC ANLOG 15 UNIT SUBCUT SCH (11:45)
--- NOTE | 2020-03-06 11:45 | PDOC PROGRESS REPORT ---
Subjective Progress Note for:: 03/06/20 Subjective:: Patient states he feels better. Medications reviewed with him. He appears he had been on Bactrim without was a couple of weeks ago. He has lately been on doxycycline. Reason For Visit: HYPERKALEMIA Physical Exam Vital Signs: Temp Pulse Resp BP Pulse Ox 98.0 F 74 14 146/79 H 98 03/06/20 07:00 03/06/20 07:00 03/06/20 07:00 03/06/20 07:00 03/06/20 07:00 Intake & Output 03/05/20 03/06/20 03/07/20 06:59 06:59 06:59 Intake Total 3700 240 Balance 3700 240 Weight 94.8 kg General appearance: PRESENT: no acute distress, well-developed, well-nourished Head exam: PRESENT: atraumatic, normocephalic Eye exam: PRESENT: conjunctiva pink, EOMI, PERRLA. ABSENT: scleral icterus Ear exam: PRESENT: normal external ear exam Mouth exam: PRESENT: moist, tongue midline Neck exam: ABSENT: carotid bruit, JVD, lymphadenopathy, thyromegaly Respiratory exam: PRESENT: clear to auscultation gerhard. ABSENT: rales, rhonchi, wheezes Cardiovascular exam: PRESENT: RRR, +S1, +S2. ABSENT: diastolic murmur, rubs, systolic murmur Pulses: PRESENT: normal dorsalis pedis pul Vascular exam: PRESENT: normal capillary refill GI/Abdominal exam: PRESENT: normal bowel sounds, soft. ABSENT: distended, guarding, mass, organolmegaly, rebound, tenderness Rectal exam: PRESENT: deferred Extremities exam: PRESENT: full ROM, other - tenderness R foot. ABSENT: calf tenderness, clubbing, pedal edema Neurological exam: PRESENT: alert, awake, oriented to person, oriented to place, oriented to time, oriented to situation, CN II-XII grossly intact. ABSENT: motor sensory deficit Psychiatric exam: PRESENT: appropriate affect, normal mood. ABSENT: homicidal ideation, suicidal ideation Skin exam: PRESENT: dry, intact, warm. ABSENT: cyanosis, rash Results Laboratory Results: 03/05/20 17:31 03/06/20 05:02 03/05/20 03/05/20 03/05/20 15:55 17:31 19:08 WBC 7.9 RBC 4.15 L Hgb 11.4 L Hct 34.6 L MCV 83 MCH 27.4 MCHC 32.9 RDW 17.9 H Plt Count 207 Seg Neutrophils % 64.3 Sodium 136.3 L 138.9 Potassium 7.6 H* 5.8 H D Chloride 108 H 110 H Carbon Dioxide 19 L 22 Anion Gap 9 7 BUN 39 H 36 H Creatinine 1.34 H 1.27 H Est GFR ( Amer) > 60 > 60 Glucose 117 H 154 H Calcium 9.9 8.9 Magnesium 1.2 L* Total Bilirubin 0.7 0.5 AST 24 17 Alkaline Phosphatase 75 66 Total Protein 7.9 6.6 Albumin 4.4 3.5 Lipase 1162.7 H Urine Color Urine Appearance Urine pH Ur Specific [place] Urine Protein Urine Glucose (UA) Urine Ketones Urine Blood Urine Nitrite Ur Leukocyte Esterase Urine WBC (Auto) 03/05/20 03/05/20 03/06/20 19:16 22:09 05:02 WBC RBC Hgb Hct MCV MCH MCHC RDW Plt Count Seg Neutrophils % Sodium 138.5 137.4 Potassium 5.7 H 5.5 H Chloride 110 H 108 H Carbon Dioxide 19 L 21 L Anion Gap 10 8 BUN 33 H 30 H Creatinine 1.23 1.24 Est GFR ( Amer) > 60 > 60 Glucose 218 H 175 H Calcium 8.7 9.2 Magnesium Total Bilirubin 0.4 AST 18 Alkaline Phosphatase 78 Total Protein 6.8 Albumin 3.6 Lipase Urine Color STRAW Urine Appearance CLEAR Urine pH 5.0 Ur Specific [place] 1.012 Urine Protein NEGATIVE Urine Glucose (UA) 50 H Urine Ketones NEGATIVE Urine Blood NEGATIVE Urine Nitrite NEGATIVE Ur Leukocyte Esterase NEGATIVE Urine WBC (Auto) 0 03/06/20 05:02 WBC RBC Hgb Hct MCV MCH MCHC RDW Plt Count Seg Neutrophils % Sodium Potassium Chloride Carbon Dioxide Anion Gap BUN Creatinine Est GFR ( Amer) Glucose Calcium Magnesium 1.2 L* Total Bilirubin AST Alkaline Phosphatase Total Protein Albumin Lipase 1035.9 H Urine Color Urine Appearance Urine pH Ur Specific [place] Urine Protein Urine Glucose (UA) Urine Ketones Urine Blood Urine Nitrite Ur Leukocyte Esterase Urine WBC (Auto) EKG Comments: Nonspecific T wave changes, sinus rhythm Assessment and Plan - Diagnosis (1) Hyperkalemia Is this a current diagnosis for this admission?: Yes Plan: Secondary to potassium supplementation, complicated by diet follow-up dietitian consult for patient education, continue Kayexalate, IV fluids, follow-up chemistry KG continues to show no peaked T waves (2) Hypomagnesemia Is this a current diagnosis for this admission?: Yes Plan: [place] 1.2 still, will replenish and recheck (3) Acute renal failure Qualifiers: Acute renal failure type: unspecified Qualified Code(s): N17.9 - Acute kidney failure, unspecified Is this a current diagnosis for this admission?: Yes Plan: Prerenal state, improved (4) Dehydration Is this a current diagnosis for this admission?: Yes Plan: Continue with judicious IV fluids (5) Diabetes mellitus Qualifiers: Diabetes mellitus type: type 2 Diabetes mellitus superintendent terminal insulin use: without custodial use Diabetes mellitus complication status: without complication Qualified Code(s): E11.9 - Type 2 diabetes mellitus without complications Is this a current diagnosis for this admission?: Yes Plan: Will place on sliding scale insulin. Patient has a jatinder glucose monitor - Plan Summary Summary: Appears to still have some tenderness of his right foot. He was recently treated for cellulitis. Will follow-up with an x-ray first further interventions as needed
[2020-03-06] MEDS: INSULIN LISPRO 100 UNIT/ML 3 ML VIAL SUBCUT SCH ×5 (11:58→21:07)
[2020-03-06] MEDS: ASPIRIN 81 MG TABLET, ENT COATED PO SCH (12:49)
--- NOTE | 2020-03-06 12:58 | RADIOLOGY REPORT (SQ) ---
EXAM DESCRIPTION: FOOT RIGHT 2 VIEWS IMAGES COMPLETED DATE/TIME: 03/06/2020 12:43 pm REASON FOR STUDY: Pain and swelling COMPARISON: None. NUMBER OF VIEWS: Two views. TECHNIQUE: AP and lateral radiographic images acquired of the right foot. LIMITATIONS: None. FINDINGS: MINERALIZATION: Normal. BONES: No acute fracture or dislocation. No worrisome bone lesions. JOINTS: Degenerative changes involving the 1st metatarsal phalangeal joint. SOFT TISSUES: Soft tissue swelling at the 1st metatarsal phalangeal joint an along the dorsal aspect of the foot. OTHER: No other significant finding. IMPRESSION: Probable gout involving the 1st metatarsal phalangeal joint. No acute fracture or dislo cation. TECHNICAL DOCUMENTATION: JOB ID: [id number] 2010 [employer]- All Rights Reserved Reading location - IP/workstation name: [email or web address]
[2020-03-06] MEDS ORDERED: INSULIN LISPRO 15 UNIT SQ SCH (14:00)
[2020-03-06] MEDS: SODIUM POLYSTYRENE SULFONATE 15 GM/60 ML PO SCH (21:07)
[2020-03-07] MEDS: ACETAMINOPHEN 325 MG TABLET PO PRN (01:38)
[2020-03-07] MEDS: HEPARIN SOD (PORCINE) 5,000 UNIT/ML 1 ML VIAL SUBCUT SCH (05:18)
[2020-03-07 06:50] LABS: ANION GAP 9 (5-19); BLOOD UREA NITROGEN 21 mg/dL (7-20); CALCIUM 8.7 mg/dL (8.4-10.2); CARBON DIOXIDE 22 mmol/L (22-30); CHLORIDE 104 mmol/L (98-107); GLUCOSE 168 mg/dL (75-110); POTASSIUM 4.8 mmol/L (3.6-5.0); URIC ACID 8.4 mg/dL (3.5-8.5)
[2020-03-07] MEDS ORDERED: FUROSEMIDE 20 MG TABLET PO SCH (08:00)
[2020-03-07] MEDS ORDERED: PANTOPRAZOLE SODIUM 40 MG TABLET.DR PO SCH (08:00)
[2020-03-07] MEDS: INSULIN LISPRO 100 UNIT/ML 3 ML VIAL SUBCUT SCH ×2 (08:06→08:07)
[2020-03-07] MEDS: SODIUM POLYSTYRENE SULFONATE 15 GM/60 ML PO SCH (09:44)
[2020-03-07] MEDS: TICAGRELOR 90 MG TABLET PO SCH (09:44)
[2020-03-07] MEDS: ASPIRIN 81 MG TABLET, ENT COATED PO SCH (09:44)
[2020-03-07] MEDS ORDERED: METOPROLOL SUCCINATE 25 MG TAB.SR.24H PO SCH (10:00)
[2020-03-07] MEDS ORDERED: INSULIN GLARGINE,HUM.REC.ANLOG 1,000 UNIT/10 ML VIAL (PYX) SUBCUT SCH (10:00)
[2020-03-07] MEDS ORDERED: CHOLECALCIFEROL (D3) 1,000 UNIT (25 MCG) TABLET PO SCH (10:00)
[2020-03-07] MEDS ORDERED: ISOSORBIDE MONONITRATE 30 MG TAB.ER.24H PO SCH (10:00)
[2020-03-07] MEDS ORDERED: ATORVASTATIN CALCIUM 40 MG TABLET PO SCH (10:00)
--- NOTE | 2020-03-07 10:13 | PDOC DISCHARGE SUMMARY ---
Impression - Admit/DC Date/PCP Admission Date/Primary Care Provider: 03/05/20 23:22 AYDE MICHAELS MD Discharge Date: 03/07/20 - Discharge Diagnosis (1) Hyperkalemia Is this a current diagnosis for this admission?: Yes (2) Hypomagnesemia Is this a current diagnosis for this admission?: Yes (3) Acute renal failure Is this a current diagnosis for this admission?: Yes (4) Dehydration Is this a current diagnosis for this admission?: Yes (5) Diabetes mellitus Is this a current diagnosis for this admission?: Yes (6) Elevated lipase Is this a current diagnosis for this admission?: Yes - Additional Information Resuscitation Status: Full Code Discharge Diet: Diabetic Discharge Activity: Activity As Tolerated Referrals: AYDE MICHAELS MD [Primary Care Provider] - 03/14/20 (Follow up labs) Home Medications: Aspirin [Aspirin EC] 81 mg PO DAILY 08/26/18 Insulin Glargine,Hum.rec.anlog [Toujeo Solostar] 15 unit SQ DAILY 08/26/18 Insulin Lispro [Humalog Kwikpen U-100] 15 unit SQ TID 08/26/18 Metformin HCl [Metformin HCl ER] 1,000 mg PO BID 08/26/18 Furosemide [Lasix 20 mg Tablet] 20 mg PO QAM #10 tablet 11/11/19 Atorvastatin Calcium [Lipitor 40 mg Tablet] 40 mg PO DAILY 02/17/20 Cholecalciferol (Vitamin D3) [Vitamin D3 1000 Unit Tablet] 1,000 unit PO DAILY 02/17/20 Isosorbide Mononitrate [Imdur 30 mg Tablet.er] 15 mg PO DAILY 02/17/20 Metoprolol Succinate [Toprol Xl 25 mg Tab.sr] 25 mg PO DAILY 02/17/20 Nitroglycerin [Nitrostat 0.4 mg (1/150 Gr) Tabs 25/Bottle] 1 tab SL Q5MP PRN 02/17/20 Pantoprazole Sodium [Protonix [address] Tablet] 40 mg PO QAM 02/17/20 Ticagrelor [Brilinta 90 mg Tablet] 1 tab PO BID 02/17/20 Cyclobenzaprine HCl [Flexeril 10 mg Tablet] 10 mg PO TIDP PRN 03/06/20 History of Present Illiness History of Present Illness: ALLAN NI is a 74 year old male Who presented to the emergency room with abnormal labs. Patient was found to have a potassium of 7.6. He was also found to have an elevated lipase of about 1100. Patient was admitted for further management. Hospital Course Hospital Course: Patient was found to be hyperkalemic. EKG did not reveal any acute changes. Hyperkalemia was felt to be somewhat secondary to dietary indiscretion, possibly iatrogenic with the use of lisinopril and dehydration. Patient had been ingesting bananas and oranges. He was treated with the standard hyperkalemia treatment. He was monitored on telemetry. After several doses of Kayexalate his potassium did come down and it is currently 4.8 today he had no significant arrhythmias on telemetry. Patient has been advised on the need to avoid these agents. His lisinopril is currently on hold as he also had COMFORT in addition to the hyperkalemia but this will need to be reevaluated and restarted as appropriate. She was also found to have elevated serum lipase although precise etiology of this is unclear. He has some abdominal symptoms. This could be somewhat related to his kidney function although with a resolution of his kidney function his lipase is still high. This should be followed as outpatient. Patient has been able to tolerate his diet with no further issues. Patient's magnesium was also found to be low at 1.8. This has been corrected but I will suggest outpatient follow-up with magnesium level also. Patient has remained hemodynamically stable. He did have some pain of his right foot which was recently treated for cellulitis. Follow-up imaging studies suggested possible gout but on further evaluation patient's pain had resolved and so he was not treated for gout. Uric acid level was within normal Physical Exam Vital Signs: Temp Pulse Resp BP Pulse Ox 97.8 F 70 19 120/60 99 03/07/20 07:37 03/07/20 07:37 03/07/20 07:37 03/07/20 07:37 03/07/20 07:37 Intake & Output 03/06/20 03/07/20 03/08/20 06:59 06:59 06:59 Intake Total 3700 820 Output Total 900 Balance 3700 -80 Weight 94.8 kg 94.8 kg General appearance: PRESENT: no acute distress, well-developed, well-nourished Head exam: PRESENT: atraumatic, normocephalic Eye exam: PRESENT: conjunctiva pink, EOMI, PERRLA. ABSENT: scleral icterus Ear exam: PRESENT: normal external ear exam Mouth exam: PRESENT: moist, tongue midline Neck exam: ABSENT: carotid bruit, JVD, lymphadenopathy, thyromegaly Respiratory exam: PRESENT: clear to auscultation gerhard, unlabored. ABSENT: rales, rhonchi, wheezes Cardiovascular exam: PRESENT: RRR, +S1, +S2. ABSENT: diastolic murmur, rubs, systolic murmur Pulses: PRESENT: normal dorsalis pedis pul Vascular exam: PRESENT: normal capillary refill GI/Abdominal exam: PRESENT: normal bowel sounds, soft. ABSENT: distended, guarding, mass, organolmegaly, rebound, tenderness Rectal exam: PRESENT: deferred Extremities exam: PRESENT: full ROM. ABSENT: calf tenderness, clubbing, pedal edema Neurological exam: PRESENT: alert, awake, oriented to person, oriented to place, oriented to time, oriented to situation, CN II-XII grossly intact. ABSENT: motor sensory deficit Psychiatric exam: PRESENT: appropriate affect, normal mood. ABSENT: homicidal ideation, suicidal ideation Skin exam: PRESENT: dry, intact, warm. ABSENT: cyanosis, rash Results Laboratory Results: WBC 7.9 10^3/uL (4.0-10.5) 03/05/20 17:31 RBC 4.15 10^6/uL (4.35-5.55) L 03/05/20 17:31 Hgb 11.4 g/dL (13.5-17.0) L 03/05/20 17:31 Hct 34.6 % (37.9-51.0) L 03/05/20 17:31 MCV 83 fl (80-97) 03/05/20 17: MCH 27.4 pg (27.0-33.4) 03/05/20 17: MCHC 32.9 g/dL (32.0-36.0) 03/05/20 17:31 RDW 17.9 % (11.5-14.0) H 03/05/20 17:31 Plt Count 207 10^3/uL (150-450) 03/05/20 17:31 Lymph % (Auto) 23.8 % (13-45) 03/05/20 17:31 [place] % (Auto) 10.2 % (3-13) 03/05/20 17:31 Eos % (Auto) 1.6 % (0-6) 03/05/20 17:31 Baso % (Auto) 0.1 % (0-2) 03/05/20 17:31 Absolute Neuts (auto) 5.1 10^3/uL (1.7-8.2) 03/05/20 17:31 Absolute Lymphs (auto) 1.9 10^3/uL (0.5-4.7) 03/05/20 17:31 Absolute Monos (auto) 0.8 10^3/uL (0.1-1.4) 03/05/20 17:31 Absolute Eos (auto) 0.1 10^3/uL (0.0-0.6) 03/05/20 17:31 Absolute Basos (auto) 0.0 10^3/uL (0.0-0.2) 03/05/20 17:31 Seg Neutrophils % 64.3 % (42-78) 03/05/20 17:31 Sodium 135.1 mmol/L (137-145) L 03/07/20 05:38 Potassium 4.8 mmol/L (3.6-5.0) 03/07/20 05:38 Chloride 104 mmol/L (98-107) 03/07/20 05:38 Carbon Dioxide 22 mmol/L (22-30) 03/07/20 05:38 Anion Gap 9 (5-19) 03/07/20 05:38 BUN 21 mg/dL (7-20) H 03/07/20 05:38 Creatinine 1.08 mg/dL (0.52-1.25) 03/07/20 05:38 Est GFR ( Amer) > 60 (>60) 03/07/20 05:38 Est GFR (MDRD) Non-Af > 60 (>60) 03/07/20 05:38 Glucose 168 mg/dL (75-110) H 03/07/20 05:38 POC Glucose 181 mg/dL (70-110) H 03/07/20 06:07 Uric Acid 8.4 mg/dL (3.5-8.5) 03/07/20 05:38 Calcium 8.7 mg/dL (8.4-10.2) 03/07/20 05:38 Magnesium 1.6 mg/dL (1.6-2.3) 03/07/20 05:38 Total Bilirubin 0.4 mg/dL (0.2-1.3) 03/05/20 22:09 Direct Bilirubin 0.0 mg/dL (0.0-0.4) 03/05/20 22:09 Neonat Total Bilirubin Not Reportable 03/05/20 22:09 Neonat Direct Bilirubin Not Reportable 03/05/20 22:09 Neonat Indirect Bili Not Reportable 03/05/20 22:09 AST 18 U/L (17-59) 03/05/20 22:09 ALT 14 U/L (<50) 03/05/20 22:09 Alkaline Phosphatase 78 U/L (38-126) 03/05/20 22:09 Total Protein 6.8 g/dL (6.3-8.2) 03/05/20 22:09 Albumin 3.6 g/dL (3.5-5.0) 03/05/20 22:09 Lipase 783.7 U/L (23-300) H 03/07/20 05:38 Urine Color STRAW 03/05/20 19:16 Urine Appearance CLEAR 03/05/20 19:16 Urine pH 5.0 (5.0-9.0) 03/05/20 19:16 Ur Specific [place] 1.012 03/05/20 19:16 Urine Protein NEGATIVE mg/dL (NEGATIVE) 03/05/20 19:16 Urine Glucose (UA) 50 mg/dL (NEGATIVE) H 03/05/20 19:16 Urine Ketones NEGATIVE mg/dL (NEGATIVE) 03/05/20 19:16 Urine Blood NEGATIVE (NEGATIVE) 03/05/20 19:16 Urine Nitrite NEGATIVE (NEGATIVE) 03/05/20 19:16 Urine Bilirubin NEGATIVE (NEGATIVE) 03/05/20 19:16 Urine Urobilinogen NEGATIVE mg/dL (<2.0) 03/05/20 19:16 Ur Leukocyte Esterase NEGATIVE (NEGATIVE) 03/05/20 19:16 Urine WBC (Auto) 0 /HPF 03/05/20 19:16 Urine Mucus (Auto) RARE /LPF 04/27/20 19:16 Urine Ascorbic Acid NEGATIVE (NEGATIVE) 03/05/20 19:16 EKG Comments: Nonspecific T wave changes Impressions: Foot X-Ray 03/06/20 00:00 IMPRESSION: Probable gout involving the 1st metatarsal phalangeal joint. No acute fracture or dislocation. Plan Health Concerns: Follow-up BMP, magnesium as well as lipase. Reevaluation of medications including lisinopril also suggested Time Spent: Greater than 30 Minutes Stroke Is this a Stroke Patient?: No Acute Heart Failure - Is this a Heart Failure Patient?: No
[2020-03-07 11:05] VITALS: BP 152/62
== END 2020-03-07 11:35 | disposition home or self-care (01) | DRG 641 ==
LOC: ER 15:20 → EH 23:22 → OBSVTOIN 23:22 → 4W 03-06 00:08
PROVIDERS: ADMIT Internal Medicine; ATTEND Internal Medicine
DX: E87.5 Hyperkalemia (principal); N17.9 Acute kidney failure, unspecified; E11.9 Type 2 diabetes mellitus without complications; I25.10 Atherosclerotic heart disease of native coronary artery without angina pectoris; M79.671 Pain in right foot; Z95.5 Presence of coronary angioplasty implant and graft; I11.0 Hypertensive heart disease with heart failure; I50.9 Heart failure, unspecified; Z79.899 Other long term (current) drug therapy; Z86.59 Personal history of other mental and behavioral disorders; Z82.49 Family history of ischemic heart disease and other diseases of the circulatory system; Z79.4 Long term (current) use of insulin; E83.42 Hypomagnesemia; E86.0 Dehydration; R74.8 Abnormal levels of other serum enzymes
CPT/HCPCS: 36415; 80048; 80053; 81001; 82962; 83690; 83735; 84550; 85025; 87070; 93005; 93010; 96361; 96365; 96375; 99284; G0378; J1644; J1815; J3475; J3490; J7030